=== PATIENT | female | born 1950 | race Two or more races ===

== ENCOUNTER → 2019-12-02 | Outpatient (CLI) | payer OTHER ==
[2019-12-02 12:35] LABS: Basophils # (auto) 0.1 uL; Eosinophils # (auto) 0.2 uL; Hematocrit 34.5 % (36.0-46.0); Mean Corpuscular Hemoglobin 22.9 pg (28.0-32.0); Neutrophils # (auto) 2.3 uL; Nucleated Red Blood Cells % 0.1 %; White Blood Cell 5.3 10^3/uL (4.4-10.8)
[2019-12-02 12:37] LABS: Basophils % (auto) 1.3 % (0.0-2.0); Eosinophils % (auto) 3.6 % (0.0-7.0); Hemoglobin 11.1 g/dL (12.2-16.2); Lymphocytes # (auto) 2.2 uL; Lymphocytes % (auto) 41.9 % (10.0-50.0); Mean Corpuscular Hgb Conc. 32.3 g/dL (32.0-36.0); Mean Corpuscular Volume 70.9 fL (80.0-100.0); Monocytes # (auto) 0.5 uL; Monocytes % (auto) 9.9 % (0.0-12.0); Neutrophils % (auto) 43.3 % (37.0-80.0); Platelet Count (auto) 208 10^3/uL (140-450); Red Blood Cells 4.87 10^6/uL (4.0-5.20); Red Cell Distribution Width 17.4 % (11.8-14.3)
[2019-12-02 12:59] LABS: Urine Bacteria NONE SEEN /hpf (None Seen); Urine Blood Negative /uL (Negative); Urine Mucus FEW (None Seen); Urine Specific Gravity 1.022 (1.001-1.035); Urine WBC 1 /hpf (0 - 5)
[2019-12-02 13:08] LABS: Potassium 3.8 mmol/L (3.5-5.1)
[2019-12-02 13:26] LABS: Albumin 3.7 g/dL (3.4-5.0); BUN/Creatinine Ratio 17.6; Bilirubin, Total 0.4 mg/dL (0.2-1.0); Calcium 8.9 mg/dL (8.5-10.1); Total Protein 8.3 g/dL (6.4-8.2)
== END | disposition home or self-care (01) ==
LOC: LAB 12:18
PROVIDERS: ATTEND Nurse Practitioner
DX: Z00.00 Encounter for general adult medical examination without abnormal findings (principal); E78.5 Hyperlipidemia, unspecified
CPT/HCPCS: 36415; 80053; 80061; 81001; 84443; 85025

== ENCOUNTER → 2020-08-02 | Outpatient (CLI) | payer OTHER ==
[2020-08-02 12:42] LABS: Albumin 3.4 g/dL (3.4-5.0); Calcium 9.2 mg/dL (8.5-10.1); Potassium 3.8 mmol/L (3.5-5.1)
[2020-08-02 12:47] LABS: BUN/Creatinine Ratio 15.9; Bilirubin, Total 0.4 mg/dL (0.2-1.0); Total Protein 7.3 g/dL (6.4-8.2)
== END | disposition home or self-care (01) ==
LOC: LAB 11:51
PROVIDERS: ATTEND Nurse Practitioner
DX: E78.5 Hyperlipidemia, unspecified (principal)
CPT/HCPCS: 36415; 80053; 80061

== ENCOUNTER → 2022-03-02 | Outpatient (CLI) | payer OTHER ==
[2022-03-02 13:52] LABS: Basophils # (auto) 0.1 10 ^3/uL (0-0.2); Basophils % (auto) 1.6 % (0.0-2.0); Eosinophils # (auto) 0.3 10 ^3/uL (0-0.8); Eosinophils % (auto) 5.4 % (0.0-7.0); Hematocrit 34.5 % (36.0-46.0); Lymphocytes # (auto) 2.6 10 ^3/uL (0.4-5.4); Lymphocytes % (auto) 45.4 % (10.0-50.0); Mean Corpuscular Hemoglobin 22.3 pg (28.0-32.0); Mean Corpuscular Volume 69.5 fL (80.0-100.0); Monocytes # (auto) 0.6 10 ^3/uL (0-1.3); Monocytes % (auto) 10.6 % (0.0-12.0); Neutrophils # (auto) 2.2 10 ^3/uL (1.6-8.6); Nucleated Red Blood Cells % 0.1 %; Red Blood Cells 4.96 10^6/uL (4.0-5.20); Red Cell Distribution Width 16.7 % (11.8-14.3); White Blood Cell 5.8 10^3/uL (4.4-10.8)
[2022-03-02 14:08] LABS: Urine Bacteria NONE SEEN /hpf (None Seen); Urine Blood Negative /uL (Negative); Urine Mucus FEW (None Seen); Urine Specific Gravity 1.028 (1.001-1.035); Urine WBC 1 /hpf (0 - 5)
[2022-03-02 14:21] LABS: Albumin 3.5 g/dL (3.4-5.0); Calcium 9.4 mg/dL (8.5-10.1); Potassium 4.8 mmol/L (3.5-5.1)
[2022-03-02 14:26] LABS: BUN/Creatinine Ratio 15.2
[2022-03-02 14:27] LABS: Bilirubin, Total 0.4 mg/dL (0.2-1.0); Total Protein 7.7 g/dL (6.4-8.2)
== END | disposition home or self-care (01) ==
LOC: LAB 13:31
PROVIDERS: ATTEND Nurse Practitioner
DX: E78.5 Hyperlipidemia, unspecified (principal); I10 Essential (primary) hypertension
CPT/HCPCS: 36415; 80053; 80061; 81001; 85025

== ENCOUNTER → 2022-07-20 | Outpatient (CLI) | payer OTHER ==
[2022-07-20 11:29] LABS: Mean Corpuscular Hemoglobin 21.7 pg (28.0-32.0); Mean Corpuscular Hgb Conc. 31.5 g/dL (32.0-36.0); Monocytes # (auto) 0.8 10 ^3/uL (0-1.3); Neutrophils # (auto) 2.8 10 ^3/uL (1.6-8.6); Neutrophils % (auto) 40.2 % (37.0-80.0)
[2022-07-20 11:34] LABS: Basophils # (auto) 0.1 10 ^3/uL (0-0.2); Basophils % (auto) 1.3 % (0.0-2.0); Eosinophils # (auto) 0.2 10 ^3/uL (0-0.8); Eosinophils % (auto) 3.4 % (0.0-7.0); Hematocrit 33.7 % (36.0-46.0); Hemoglobin 10.6 g/dL (12.2-16.2); Lymphocytes % (auto) 43.9 % (10.0-50.0); Mean Corpuscular Volume 69.1 fL (80.0-100.0); Monocytes % (auto) 11.2 % (0.0-12.0); Red Blood Cells 4.88 10^6/uL (4.0-5.20); Red Cell Distribution Width 17.6 % (11.8-14.3); White Blood Cell 6.9 10^3/uL (4.4-10.8)
[2022-07-20 12:01] LABS: Urine Bacteria NONE SEEN /hpf (None Seen); Urine Blood Negative /uL (Negative); Urine Specific Gravity 1.025 (1.001-1.035); Urine WBC 2 /hpf (0 - 5)
[2022-07-20 12:37] LABS: Potassium 4.4 mmol/L (3.5-5.1)
[2022-07-20 12:45] LABS: Albumin 3.5 g/dL (3.4-5.0); BUN/Creatinine Ratio 21.6; Bilirubin, Total 0.4 mg/dL (0.2-1.0); Calcium 8.7 mg/dL (8.5-10.1); Total Protein 7.1 g/dL (6.4-8.2)
== END | disposition home or self-care (01) ==
LOC: LAB 11:10
PROVIDERS: ATTEND Nurse Practitioner
DX: E78.5 Hyperlipidemia, unspecified (principal); R73.9 Hyperglycemia, unspecified
CPT/HCPCS: 36415; 80053; 80061; 81001; 83036; 85025

== ENCOUNTER → 2024-01-15 | Outpatient (CLI) | payer OTHER ==
[2024-01-15 10:01] LABS: Basophils # (auto) 0.1 10 ^3/uL (0-0.2); Basophils % (auto) 1.1 % (0.0-2.0); Hematocrit 35.5 % (36.0-46.0); Hemoglobin 11.2 g/dL (12.2-16.2); Lymphocytes # (auto) 2.7 10 ^3/uL (0.4-5.4); Neutrophils # (auto) 2.9 10 ^3/uL (1.6-8.6); Nucleated Red Blood Cells % 0.1 %; Red Blood Cells 4.99 10^6/uL (4.0-5.20)
[2024-01-15 10:03] LABS: Eosinophils # (auto) 0.3 10 ^3/uL (0-0.8); Eosinophils % (auto) 4.4 % (0.0-7.0); Lymphocytes % (auto) 42.2 % (10.0-50.0); Mean Corpuscular Hemoglobin 22.5 pg (28.0-32.0); Mean Corpuscular Hgb Conc. 31.7 g/dL (32.0-36.0); Mean Corpuscular Volume 71.2 fL (80.0-100.0); Monocytes # (auto) 0.5 10 ^3/uL (0-1.3); Monocytes % (auto) 7.6 % (0.0-12.0); Neutrophils % (auto) 44.7 % (37.0-80.0); Red Cell Distribution Width 16.4 % (11.8-14.3); White Blood Cell 6.4 10^3/uL (4.4-10.8)
[2024-01-15 10:36] LABS: Alanine Aminotransferase 18 U/L (7-40); Albumin 4.2 g/dL (3.2-4.8); Alkaline Phosphatase 54 U/L (46-116); Anion Gap 6 (5-15); Aspartate Aminotransferase 13 U/L (13-40); BUN/Creatinine Ratio 18.9 (10.0-20.0); Blood Urea Nitrogen 17 mg/dL (9-23); Calcium 9.3 mg/dL (8.5-10.1); Carbon Dioxide 29 mmol/L (20-30); Chloride 107 mmol/L (98-107); Cholesterol 226 mg/dL (< 200); Glucose 100 mg/dL (74-106); HDL Cholesterol 50 mg/dL (40-59); LDL Cholesterol 156 mg/dL (< 100); Potassium 3.9 mmol/L (3.5-5.1); Sodium 142 mmol/L (136-145); Triglycerides 80 mg/dL (< 150)
[2024-01-15 10:37] LABS: Bilirubin, Total 0.5 mg/dL (0.2-1.0); Total Protein 7.6 g/dL (5.7-8.2)
[2024-01-15 10:56] LABS: Urine Bacteria NONE SEEN /hpf (None Seen); Urine Blood Negative /uL (Negative); Urine Clarity Clear (Clear); Urine Color Colorless (Yellow); Urine Protein, UAD Negative (Negative); Urine Specific Gravity 1.021 (1.001-1.035); Urine Urobilinogen Normal (Negative); Urine WBC 6 /hpf (0 - 5)
== END | disposition home or self-care (01) ==
LOC: LAB 09:45
PROVIDERS: ATTEND Nurse Practitioner
DX: E11.9 Type 2 diabetes mellitus without complications (principal); I10 Essential (primary) hypertension; E78.5 Hyperlipidemia, unspecified
CPT/HCPCS: 36415; 80053; 80061; 81001; 83036; 84443; 85025

== ENCOUNTER 2024-11-13 19:31 | Inpatient (IN) | payer BC, OTHER ==
[~2024-11-13] VITALS: Ht 162.6 cm; Wt 73.2 kg
[~2024-11-13 19:31] MED LIST: ASPI-628 PO; ATOR10TA PO; BACL10TA PO; LOSA-533 PO
[2024-11-13 20:16] LABS: Monocytes # (auto) 0.7 10 ^3/uL (0-1.3); Platelet Count (auto) 244 10^3/uL (140-450); Red Cell Distribution Width 16.6 % (11.8-14.3)
[2024-11-13 20:18] LABS: Basophils # (auto) 0.1 10 ^3/uL (0-0.2); Basophils % (auto) 1.7 % (0.0-2.0); Eosinophils # (auto) 0.1 10 ^3/uL (0-0.8); Eosinophils % (auto) 1.8 % (0.0-7.0); Hematocrit 34.5 % (36.0-46.0); Lymphocytes # (auto) 3.2 10 ^3/uL (0.4-5.4); Lymphocytes % (auto) 41.9 % (10.0-50.0); Mean Corpuscular Hemoglobin 22.6 pg (28.0-32.0); Mean Corpuscular Volume 70.6 fL (80.0-100.0); Monocytes % (auto) 9.2 % (0.0-12.0); Neutrophils # (auto) 3.4 10 ^3/uL (1.6-8.6); Neutrophils % (auto) 45.4 % (37.0-80.0); Nucleated Red Blood Cells % 0.1 %; Red Blood Cells 4.89 10^6/uL (4.0-5.20); White Blood Cell 7.6 10^3/uL (4.4-10.8)
[2024-11-13 20:30] LABS: Alanine Aminotransferase 19 U/L (7-40); Albumin 4.7 g/dL (3.2-4.8); Alkaline Phosphatase 69 U/L (46-116); Anion Gap 9 (5-15); Aspartate Aminotransferase 19 U/L (13-40); BUN/Creatinine Ratio 23.9 (10.0-20.0); Bilirubin, Total 0.3 mg/dL (0.2-1.0); Carbon Dioxide 24 mmol/L (20-31); Potassium 3.5 mmol/L (3.5-5.1); Sodium 141 mmol/L (136-145); Total Protein 8.1 g/dL (5.7-8.2)
[2024-11-13 20:31] LABS: Chloride 108 mmol/L (98-107); Glucose 194 mg/dL (74-106)
[2024-11-13 20:32] LABS: Blood Urea Nitrogen 27 mg/dL (9-23)
--- NOTE | 2024-11-13 20:53 | ED.PDOC ---
HPI (NEURO) HPI Comments 74 year old female came to Er for right sided weakness. Patient denies any medical problems. States 2 hours prior to arrival she developed sudden onset right sided weakness and numbness of her upper and lower extremities. She felt dizzy, noted slurring of speech and imbalance. Denies any headaches. Patient states she feels better upon arrival at the ER. Blood pressure upon arrival was 170/83 mmHg Chief Complaint: Right Sided Weakness Time Seen by MD: 20:51 Reviewed Notes: Nurses Notes Information Source: Patient Mode of Arrival: Ambulatory Severity: Moderate Dizziness/Weakness Severity: Unable to do activities Headache Severity: Moderate Timing: Hours Duration: Intermittent Prehospital treatment: None Weakness Location: (R) Sided Numbness Location: (R) Sided Onset: At rest, With light exertion Circumstances: Spontaneous Symptoms: Imbalance, Weakness, Numbness, Difficult speech, Slurred speech Past Medical History PAST MEDICAL HISTORY: Denies Surgical History: Denies all surgeries FLAP CURER History: Denies all FLAP CURER Hx Family History Family History: Reviewed,noncontributory to illness Social History Smoker: Non-Smoker Alcohol: Denies ETOH Use Drugs: Denies Drug Use Lives In: Home Constitutional: denies: chills, diaphoresis, fatigue, fever, malaise, sweats, weakness, others EENTM: denies: blurred vision, double vision, ear bleeding, ear discharge, ear drainage, ear pain, ear ringing, eye pain, eye redness, hearing loss, mouth pain, mouth swelling, nasal discharge, nose bleeding, nose congestion, nose pain, photophobia, tearing, throat pain, throat swelling, voice changes, others Respiratory: denies: cough, hemoptysis, orthopnea, SOB at rest, shortness of breath, SOB with excertion, stridor, wheezing, others Cardiovascular: denies: chest pain, dizzy spells, diaphoresis, Dyspnea on exertion, edema, irregular heart beat, left arm pain, lightheadedness, palpitations, PND, syncope, others Gastrointestinal: denies: abdomen distended, abdominal pain, blood streaked bowels, constipated, diarrhea, dysphagia, difficulty swallowing, hematemesis, melena, nausea, poor appetite, poor fluid intake, rectal bleeding, rectal pain, vomiting, others Genitourinary: denies: abnormal vagina bleeding, burning, dyspareunia, dysuria, flank pain, frequency, hematuria, incontinence, pain, , vagina discharg e, urgency, others Neurological: reports: dizziness, right sided numbness, right sided weakness, speech problems; denies: fainting, headache, left sided numbness, left sided weakness, numbness, paresthesia, pre-existing deficit, seizure, tingling, tremors, weakness, others Musculoskeletal: denies: back pain, gout, joint pain, joint swelling, muscle pain, muscle stiffness, neck pain, others Integumetry: denies: bruises, change in color, change in hair/nails, dryness, laceration, lesions, lumps, rash, wounds, others Allergic/Immunocompromised: denies: Difficulty Healing, Frequent Infections, Hives, Itching, others Hematologic/Lymphatic: denies: anemia, blood clots, easy bleeding, easy bruising, swollen glands, others Endocrine: denies: excessive hunger, excessive sweating, excessive thirst, excessive urination, flushing, intolerance to cold, intolerance to heat, unexplained weight gain, unexplained weight loss, others Psychiatric: denies: anxiety, bipolar disorder, depression, hopeless, panic disorder, schizophrenia, sleepless, suicidal, others Physical Exam General Appearance: No Apparent Distress, Normal HEENT: Normal ENT Inspection, Pharynx Normal, TMs Normal Neck: Full Range of Motion, Non-Tender, Normal, Normal Inspection Respiratory: Chest Non-Tender, Lungs Clear, No Accessory Muscle Use, No Respiratory Distress, Normal Breath Sounds Cardiovascular: No Edema, No JVD, No Murmur, No Gallop, Normal Peripheral Pulses, Regular Rate/Rhythm Breast Exam: Deferred Gastrointestinal: No Organomegaly, Non Tender, No Pulsatile Mass, Normal Bowel Sounds, Soft Genitalia: Deferred Pelvic: Deferred Rectal: Deferred Extremities: No calf tenderness, Normal capillary refill, Normal inspection, Normal range of motion, Non-tender, No pedal edema Musculoskeletal : Apperance: Normal Neurologic: Alert, strand galvanizer II-XII nml as Tested, No Motor Deficits, Normal Affect, Normal Mood, No Sensory Deficits Cerebellar Function: Normal Reflexes: Normal Skin: Dry, Normal Color, Warm Lymphatic: No Adenopathy Was a procedure done? Was a procedure done?: No Differential Diagnosis (SZ) CVA: Ryan's Palsy, CVA, Electrolyte Imbalance, Encephalopathy, TIA X-Ray, Labs, Meds, VS Vital Signs Date Time Temp Pulse Resp B/P (MAP) Pulse Ox O2 Delivery O2 Flow Rate FiO2 11/13/24 22:29 73 16 100 Room Air* 0 21 11/13/24 22:29 73 16 192/90 (124) 100 11/13/24 19:35 97.7 78 18 170/83 (112) 98 Lab Test 11/13/24 21:44 11/13/24 21:30 11/13/24 19:51 11/13/24 19:48 Range/Units Urine Color Light-yellow Yellow Urine Clarity Clear Clear Urine pH 5.5 5.0-9.0 Urine Specific Luther 1.025 1.001-1.035 Urine Protein Negative Negative Urine Ketones Negative Negative Urine Blood Negative Negative /uL Urine Nitrite Negative Negative Urine Bilirubin Negative Negative Urine Urobilinogen Normal Negative mg/dL Urine Leukocyte Esterase 1+ Negative /uL Urine RBC <1 0 - 4 /hpf Urine WBC 1 0 - 5 /hpf Urine Squamous Epithelial Cells Few <5 /hpf Urine Bacteria None seen None Seen /hpf Urine Glucose Normal Normal mg/dL Troponin I High Sensitivity 18 19 </=34 ng/L White Blood Count 7.6 4.4-10.8 10^3/uL Red Blood Count 4.89 4.0-5.20 10^6/uL Hemoglobin 11.0 L 12.2-16.2 g/dL Hematocrit 34.5 L 36.0-46.0 % Mean Corpuscular Volume 70.6 L 80.0-100.0 fL Mean Corpuscular Hemoglobin 22.6 L 28.0-32.0 pg Mean Corpuscular Hemoglobin Concent 32.0 32.0-36.0 g/dL Red Cell Distribution Width 16.6 H 11.8-14.3 % Platelet Count 244 140-450 10^3/uL Mean Platelet Volume 8.0 6.9-10.8 fL Neutrophils (%) (Auto) 45.4 37.0-80.0 % Lymphocytes (%) (Auto) 41.9 10.0-50.0 % Monocytes (%) (Auto) 9.2 0.0-12.0 % Eosinophils (%) (Auto) 1.8 0.0-7.0 % Basophils (%) (Auto) 1.7 0.0-2.0 % Neutrophils # (Auto) 3.4 1.6-8.6 10 ^3/uL Lymphocytes # (Auto) 3.2 0.4-5.4 10 ^3/uL Monocytes # (Auto) 0.7 0-1.3 10 ^3/uL Eosinophils # (Auto) 0.1 0-0.8 10 ^3/uL Basophils # (Auto) 0.1 0-0.2 10 ^3/uL Nucleated Red Blood Cells 0.1 % Sodium Level 141 136-145 mmol/L Potassium Level 3.5 3.5-5.1 mmol/L Chloride Level 108 H 98-107 mmol/L Carbon Dioxide Level 24 20-31 mmol/L Anion Gap 9 5-15 Blood Urea Nitrogen 27 H 9-23 mg/dL Creatinine 1.13 H 0.550-1.02 mg/dL Glomerular Filtration Rate Calc 52 >90 mL/min BUN/Creatinine Ratio 23.9 H 10.0-20.0 Serum Glucose 194 H 74-106 mg/dL Calcium Level 10.0 8.7-10.4 mg/dL Total Bilirubin 0.3 0.2-1.0 mg/dL Aspartate Amino Transferase (AST) 19 13-40 U/L Alanine Aminotransferase (ALT) 19 7-40 U/L Alkaline Phosphatase 69 46-116 U/L B-Type Natriuretic Peptide 73.60 0-100 pg/mL Total Protein 8.1 5.7-8.2 g/dL Albumin 4.7 3.2-4.8 g/dL POC Glucose 168 H 70-106 mg/dl EXAM: CT ANGIO HEAD/NECK CLINICAL HISTORY: right arm and leg weakness TECHNIQUE: CT angiogram of the head and neck was performed without and with intravenous contrast. 3D MIP reconstructed images were created and archived on the PACS system. This exam was performed according to our departmental dose optimization program. Up-to-date CT equipment and radiation dose reduction paola hniques are utilized as appropriate. [Radimetrics Exposure Report] COMPARISON: None FINDINGS: CTA head: Mild cerebral volume loss with concordant prominence of the subarachnoid spaces and ventricles. The toro white matter interfaces are maintained There is no midline shift or mass effect. There is no evidence of acute intracranial hemorrhage. The basal cisterns are patent. The calvarium is intact. There is mild calcified plaque within the bilateral cavernous and supraclinoid ICAs. The distal internal carotid, vertebral, and basilar arteries are patent without focal narrowing or occlusion. The anterior, middle, and posterior cerebral arteries are patent without focal narrowing. No aneurysm or arteriovenous malformation is identified. CTA neck: The aortic arch vessel origins are widely patent. The common carotid and cervical portions of the internal carotid and vertebral arteries are patent without focal narrowing according to NASCET criteria. No aneurysm, AVM, or dissection is identified. The cervical soft tissues are unremarkable. The paranasal sinus and mastoid air cells are clear. Mild biapical pleural-parenchymal scarring. IMPRESSION: Widely patent arteries in the head and neck without large vessel occlusion, significant stenosis, aneurysm, dissection, or AVM. Time of 1ST Reevaluation: 20:48 Reevaluation 1ST: Unchanged Patient Education/Counseling: Diagnosis, Treatment Family Education/Counseling: No Family Present Departure 1 Departure Time of Disposition: 23:51 (Patient with concern for TIA. Patient's symptoms have since resolved .we will admit patient for further workup and expert consultation) Impression: Primary Impression: TIA (transient ischemic attack) Additional Impressions: Right sided weakness Slurred speech Disposition: ADMITTED INPATIENT Admit to: Med Surg Condition: Serious Critical Care Note Critical Care Time?: Yes (35 min-critical care time only) Critical care comment: Concern for CVA Authorized and Performed by: Vinicio Garcia MD Total critical care time: Approximately 37 minutes Due to a high probability of clinically significant, life threatening deterioration, the patient required my highest level of preparedness to intervene emergently and I personally spent this critical care time directly and personally managing the patient. This critical care time included obtaining a history; examining the patient; pulse oximetry; ordering and review of studies; arranging urgent treatment with development of a management plan; evaluation of patient's response to treatment; frequent reassessment; and, discussions with other providers. This critical care time was performed to assess and manage the high probability of imminent, life-threatening deterioration that could result in multi-organ failure. It was exclusive of separately billable procedures and treating other patients and teaching time. Please see my other sections and the rest of the note for further information on patient assessment and treatment. Stability Stability form required: No Heart Score Heart Score: Heart Score Response (Comments) Value History N/A 0 EKG N/A 0 Age N/A 0 Risk Factors N/A 0 Troponin N/A 0 Total 0 I personally scribed for VINICIO GARCIA MD ([facility]) on 11/13/24 at 20:53. Electronically submitted by Phil Heck ([facility]). I personally scribed for VINICIO GARCIA MD ([facility]) on 11/13/24 at 23:14. Electronically submitted by Phil Heck ([facility] VINICIO GARCIA MD Nov 13, 2024 20:53
[2024-11-13 21:44] LABS: Urine Bacteria None Seen /hpf (None Seen)
[2024-11-13 21:47] LABS: Urine Blood Negative /uL (Negative); Urine Clarity Clear (Clear); Urine Color Light-Yellow (Yellow); Urine Protein, UAD Negative (Negative); Urine Specific Gravity 1.025 (1.001-1.035); Urine Squamous Epithelial Cell FEW /hpf (<5); Urine Urobilinogen Normal (Negative); Urine WBC 1 /hpf (0 - 5); Urine pH 5.5 (5.0-9.0)
[2024-11-13] MEDS: IOHEXOL 350 MG/ML 100ML IJ ONE (22:19)
--- NOTE | 2024-11-13 22:22 | DVH ---
CHEST RADIOGRAPH Indication: right arm and leg weakness Technique: Frontal and lateral view of the chest was obtained Comparison: None FINDINGS: Lines and Tubes: None Lungs: Clear Pleura: No effusion. No pneumothorax. Cardiomediastinal contours: Unremarkable Bones: Unremarkable IMPRESSION: 1. No evidence of acute disease.
[2024-11-13 22:29] VITALS: PULSE 73; RESP 16; O2SAT 100
--- NOTE | 2024-11-13 22:45 | DVH ---
EXAM: CT ANGIO HEAD/NECK CLINICAL HISTORY: right arm and leg weakness TECHNIQUE: CT angiogram of the head and neck was performed without and with intravenous contrast. 3D MIP reconstructed images were created and archived on the PACS system. This exam was performed accor ding to our departmental dose optimization program. Up-to-date CT equipment and radiation dose reduct ion techniques are utilized as appropriate. [Radimetrics Exposure Report] COMPARISON: None FINDINGS: CTA head: Mild cerebral volume loss with concordant prominence of the subarachnoid spaces and ventricles. The g ray white matter interfaces are maintained There is no midline shift or mass effect. There is no evid ence of acute intracranial hemorrhage. The basal cisterns are patent. The calvarium is intact. There is mild calcified plaque within the bilateral cavernous and supraclinoid ICAs. The distal inter nal carotid, vertebral, and basilar arteries are patent without focal narrowing or occlusion. The ant erior, middle, and posterior cerebral arteries are patent without focal narrowing. No aneurysm or art eriovenous malformation is identified. CTA neck: The aortic arch vessel origins are widely patent. The common carotid and cervical portions of the int ernal carotid and vertebral arteries are patent without focal narrowing according to NASCET criteria. No aneurysm, AVM, or dissection is identified. The cervical soft tissues are unremarkable. The paranasal sinus and mastoid air cells are clear. Mild biapical pleural-parenchymal scarring. IMPRESSION: Widely patent arteries in the head and neck without large vessel occlusion, significant stenosis, ane urysm, dissection, or AVM.
[2024-11-14 00:12] VITALS: PULSE 58; RESP 19; O2SAT 100
[2024-11-14] MEDS ORDERED: DOCUSATE SOD 100 MG CAP PO PRN (00:15)
[2024-11-14] MEDS ORDERED: HYDROcodone-ACET 5/325MG TAB PO PRN (00:15)
[2024-11-14] MEDS ORDERED: ONDANSETRON HCL 4 MG/2 ML VIAL IV PRN (00:15)
[2024-11-14] MEDS: cefTRIAXone 1GM/50ML D5W 50 ML IV ONE (00:24)
--- NOTE | 2024-11-14 00:52 | DVHHP2 ---
History of Present Illness Reason for Visit: Right-sided weakness History of Present Illness Patient is a 74-year-old female with past medical history of hypertension, hyperlipidemia, and diabetes mellitus who presented to [facility] ED with complaint of right-sided weakness and left-sided facial droop. Patient repo rts she developed sudden onset of right-sided weakness, numbness of upper and lower extremities, dizziness slurred speech, unsteady gait that prompted this visit. Patient was seen and evaluated in the ED, laboratory data shows WBC 7.6, platelets 244, sodium 141, potassium 3.5, BUN 27, creatinine 1.13, GFR 52, glucose 194, troponin 18, BNP 73.60 blood pressure 192/90 trending down to 172/68, heart rate 74, temperature 97.7 F, O2 saturation 99% room air. Head CT revealing widely patent arteries in the head and neck without large vessel occlusion, significant stenosis, aneurysm, dissection, or AVM. Please see medication orders section in the computer. On my assessment, patient denied chest pain, no headache, no dizziness, no diaphoresis, no shortness of breath, no nausea, no vomiting, no fever, no chills. Patient was admitted for further evaluation medical management. Past Medical History Hypertension, HLD, DM Past Surgical History Denies all surgeries Family History Reviewed, noncontributory to the management of this case. Past Social History The patient lives at home, denies smoking, alcohol or illicit drugs abuse. Review of Systems Constitutional: No: Fever, Chills, Sweats, Weakness, Malaise, Other Eyes: No: Pain, Vision change, Conjunctivae inflammation, Eyelid inflammation, Other, Redness ENT: No: Ear pain, Ear discharge, Nose pain, Nose discharge, Nose congestion, Mouth pain, Mouth swelling, Throat pain, Throat swelling, Other Respiratory: No: Cough, Dry, Shortness of breath, SOB with excertion, Wheezing, Hemoptysis, Pleuritic Pain, Sputum, Wheezing, Other Cardiovascular: No: Chest Pain, Palpitations, Orthopnea, Paroxysmal Noc. Dyspnea, Edema, Lt Headedness, Other Gastrointestinal: No: Nausea, Vomiting, Abdominal Pain, Diarrhea, Constipation, Melena, Hematochezia, Other Genitourinary: No Dysuria, No Frequency, No Incontinence, No Hematuria, No Retention, No Other Musculoskeletal: No: other, neck pain, shoulder pain, arm pain, back pain, hand pain, leg pain, foot pain Skin: No: Rash, Lesions, Jaundice, Bruising, Other Neurological: Weakness (Right-sided), Other (dizziness, right sided numbness, speech problems.); No: Numbness, Incoordination, Change in speech, Confusion, Seizures Allergies: Coded Allergies: NO KNOWN ALLERGIES (Unverified , 11/13/24) Medications Current Medications Medications Dose Ordered Sig/Vida Route Start Time Stop Time Status Last Admin Dose Admin Hydralazine HCl 10 mg Q6HP PRN IV 11/14/24 00:15 Ceftriaxone Sodium 50 ml @ 100 mls/hr DAILY@2100 IV 11/14/24 21:00 Losartan Potassium 25 mg DAILY PO 11/14/24 10:00 Atorvastatin Calcium 10 mg HS PO 11/14/24 22:00 Sodium Chloride 10 ml Q8HR IV 11/14/24 06:00 Acetaminophen/ Hydrocodone Bitart 1 tab Q4HP PRN PO 11/14/24 00:15 Ondansetron HCl 4 mg Q4HP PRN IV 11/14/24 00:15 Docusate Sodium 100 mg BIDPRN PRN PO 11/14/24 00:15 Acetaminophen 650 mg Q6HP PRN PO 11/14/24 00:15 Aspirin 81 mg DAILY PO 11/14/24 10:00 Exam Vital Signs Vital Signs Date Time Temp Pulse Resp B/P (MAP) Pulse Ox O2 Delivery O2 Flow Rate FiO2 11/14/24 00:12 58 19 100 Room Air* 0 21 11/14/24 00:11 98.8 172/68 (102) 98.8 General Appearance: Alert, Oriented X3, Cooperative, No acute distress HEENT: Atraumatic, PERRLA, EOMI, Mucous membr. moist/pink Respiratory: Clear to auscultation, Normal air movement Cardiovascular: Regular rate, Normal S1, Normal S2, No murmurs Abdominal: Normal bowel sounds, Soft, No tenderness, No hepatospenomegaly, No masses Extremities: No clubbing, No cyanosis, No edema, Normal pulses, No tenderness/swelling Skin: No rashes, No breakdown, No significant lesion Neuro: Normal tone, Sensation intact, Cranial nerves 3-12 NL, Reflexes 2+, Other (Right-sided weakness) Psych/Mental Status: Mental status NL, Mood NL Labs/Xrays Labs Test 1/17/25 21:44 11/13/24 21:30 11/13/24 19:51 11/13/24 19:48 Range/Units Urine Color Light-yellow Yellow Urine Clarity Clear Clear Urine pH 5.5 5.0-9.0 Urine Specific Amery 1.025 1.001-1.035 Urine Protein Negative Negative Urine Ketones Negative Negative Urine Blood Negative Negative /uL Urine Nitrite Negative Negative Urine Bilirubin Negative Negative Urine Urobilinogen Normal Negative mg/dL Urine Leukocyte Esterase 1+ Negative /uL Urine RBC <1 0 - 4 /hpf Urine WBC 1 0 - 5 /hpf Urine Squamous Epithelial Cells Few <5 /hpf Urine Bacteria None seen None Seen /hpf Urine Glucose Normal Normal mg/dL Troponin I High Sensitivity 18 </=34 ng/L White Blood Count 7.6 4.4-10.8 10^3/uL Red Blood Count 4.89 4.0-5.20 10^6/uL Hemoglobin 11.0 L 12.2-16.2 g/dL Hematocrit 34.5 L 36.0-46.0 % Mean Corpuscular Volume 70.6 L 80.0-100.0 fL Mean Corpuscular Hemoglobin 22.6 L 28.0-32.0 pg Mean Corpuscular Hemoglobin Concent 32.0 32.0-36.0 g/dL Red Cell Distribution Width 16.6 H 11.8-14.3 % Platelet Count 244 140-450 10^3/uL Mean Platelet Volume 8.0 6.9-10.8 fL Neutrophils (%) (Auto) 45.4 37.0-80.0 % Lymphocytes (%) (Auto) 41.9 10.0-50.0 % Monocytes (%) (Auto) 9.2 0.0-12.0 % Eosinophils (%) (Auto) 1.8 0.0-7.0 % Basophils (%) (Auto) 1.7 0.0-2.0 % Neutrophils # (Auto) 3.4 1.6-8.6 10 ^3/uL Lymphocytes # (Auto) 3.2 0.4-5.4 10 ^3/uL Monocytes # (Auto) 0.7 0-1.3 10 ^3/uL Eosinophils # (Auto) 0.1 0-0.8 10 ^3/uL Basophils # (Auto) 0.1 0-0.2 10 ^3/uL Nucleated Red Blood Cells 0.1 % Sodium Level 141 136-145 mmol/L Potassium Level 3.5 3.5-5.1 mmol/L Chloride Level 108 H 98-107 mmol/L Carbon Dioxide Level 24 20-31 mmol/L Anion Gap 9 5-15 Blood Urea Nitrogen 27 H 9-23 mg/dL Creatinine 1.13 H 0.550-1.02 mg/dL Glomerular Filtration Rate Calc 52 >90 mL/min BUN/Creatinine Ratio 23.9 H 10.0-20.0 Serum Glucose 194 H 74-106 mg/dL Hemoglobin A1c 6.1 H <5.7 % A1C Calcium Level 10.0 8.7-10.4 mg/dL Total Bilirubin 0.3 0.2-1.0 mg/dL Aspartate Amino Transferase (AST) 19 13-40 U/L Alanine Aminotransferase (ALT) 19 7-40 U/L Alkaline Phosphatase 69 46-116 U/L B-Type Natriuretic Peptide 73.60 0-100 pg/mL Total Protein 8.1 5.7-8.2 g/dL Albumin 4.7 3.2-4.8 g/dL POC Glucose 168 H 70-106 mg/dl PATIENT: SHEYLA SWEENEY RACCT: [id number] UNIT: [id number] : 1950 LOC: ER ROOM / BED: / AGE / SEX: 74 / F ADM STATUS: REG ER SERVICE 50 ORDERING PHYSICIAN: VINICIO GARCIA MD PROCEDURE(s): [place]neck - ANGIO HEAD/Neck REASON: right arm and leg weakness ORDER NUMBER(s): [id number], ACCESSION NUMBER(s): [id number] EXAM: CT ANGIO HEAD/NECK CLINICAL HISTORY: right arm and leg weakness TECHNIQUE: CT angiogram of the head and neck was performed without and with intravenous contrast. 3D MIP reconstructed images were created and archived on the PACS system. This exam was performed according to our departmental dose optimization program. Up-to-date CT equipment and radiation dose reduction techniques are utilized as appropriate. Radimetrics Exposure Report] COMPARISON: None FINDINGS: CTA head: Mild cerebral volume loss with concordant prominence of the subarachnoid spaces and ventricles. The toro white matter interfaces are maintained There is no midline shift or mass effect. There is no evidence of acute intracranial hemorrhage. The basal cisterns are patent. The calvarium is intact. There is mild calcified plaque within the bilateral cavernous and supraclinoid ICAs. The distal internal carotid, vertebral, and basilar arteries are patent without focal narrowing or occlusion. The anterior, middle, and posterior cerebral arteries are patent without focal narrowing. No aneurysm or arteriovenous malformation is identified. CTA neck: The aortic arch vessel origins are widely patent. The common carotid and cervical portions of the internal carotid and vertebral arteries are patent without focal narrowing according to NASCET criteria. No aneurysm, AVM, or dissection is identified. The cervical soft tissues are unremarkable. The paranasal sinus and mastoid air cells are clear. Mild biapical pleural-parenchymal scarring. IMPRESSION: Widely patent arteries in the head and neck without large vessel occlusion, significant stenosis, aneurysm, dissection, or AVM. ORDERING PHYSICIAN: VINICIO GARCIA MD PROCEDURE(s): CXR2 - CHEST TWO VIEWS ROUTINE REASON: right arm and leg weakness ORDER NUMBER(s): [id number], ACCESSION NUMBER(s): [id number] CHEST RADIOGRAPH Indication: right arm and leg weakness Technique: Frontal and lateral view of the chest was obtained Comparison: None FINDINGS: Lines and Tubes: None Lungs: Clear Pleura: No effusion. No pneumothorax. Cardiomediastinal contours: Unremarkable Bones: Unremarkable IMPRESSION: 1. No evidence of acute disease. Assessment/Plan Assessment/Plan TIA (transient ischemic attack) Right sided weakness Slurred speech Urinary tract infection Hypertensive urgency Plan 1. Admit to telemetry unit 2. Breathing treatment 3. Pain control management 4. IV antibiotic management 5. Management of fluids and electrolytes 6. Consultation for Neurology 7. Diagnostic test head CT 8. DVT prophylaxis-on aspirin 9. Repeat labs CBC, CMP in a.m. 10. Home medication reviewed and reconciled 11. Continue with current medical management 12. Treatment plan discussed with patient and RN. Patient verbalized understandi ng. Plan discussed with: Patient, Other (RN) My Orders Orders - MIRLANDE NEW DNP Procedure Category Date Status Time Hydralazine Injection PHA 11/14/24 In Process (Apresoline Inject 00:15 Ceftriaxone 1gm/50ml PHA 11/14/24 In Process D5w (Rocephin) 21:00 Urine Bacterial CLEMENCIA 11/14/24 In Process Culture 00:03 Losartan Tablet PHA 11/14/24 In Process (Cozaar Tablet) 10:00 Atorvastatin (Lipitor) PHA 11/14/24 In Process 22:00 Allergies NANCY 11/14/24 In Process 00:03 Code Status CODE 11/14/24 Transmitted 00:03 Sodium Chloride Lock PHA 11/14/24 In Process (Saline Lock Ns) 06:00 Oxygen Per Hour RT 11/14/24 Transmitted 00:03 Hydrocodone-Acet PHA 11/14/24 In Process 5/325mg Tab (Noble 00:15 Ondansetron Hcl PHA 11/14/24 In Process (Zofran) 00:15 Docusate Sodium PHA 11/14/24 In Process Capsule (Colace 00:15 Fall Risk Precautions NANCY 11/14/[address] 00:03 Complete Blood Count LAB 11/15/24 Verified 04:00 Comprehensive LAB 11/15/24 Verified Metabolic Panel 04:00 Cardiac DIET 11/14/24 Transmitted Diet-2gna,Lofat,Lochol Breakfast Condition: Serious NANCY 11/14/24 In Process 00:03 Acetaminophen Tablet PHA 11/14/24 In Process (Tylenol Tablet) 00:15 Sequential NANCY 11/14/24 In Process Compression Device Aspirin Tablet PHA 11/14/24 In Process 10:00 Problem List: (1) TIA (transient ischemic attack) (2) Right sided weakness (3) Slurred speech (4) Urinary tract infection (5) Hypertensive urgency Date of Service: Nov 14, 2024 Billing Provider: MIRLANDE NEW DNP Common Visit Codes: [id number] INP/OBS CARE (HIGH) MIRLANDE NEW DNP Nov 14, 2024 00:52
[2024-11-14] MEDS ORDERED: NITROGLYCERIN 0.4 MG SL TAB SL PRN (01:00)
[2024-11-14] MEDS ORDERED: MORPHINE SULFATE INJ 2 MG/ml SYRG IV PRN (01:00)
[2024-11-14] MEDS ORDERED: DEXTROSE (50%) 50ML SYRG IV PRN (01:00)
[2024-11-14] MEDS: amLODIPine BESYLATE 5 MG TAB PO ONE (02:12)
[2024-11-14] MEDS: hydrALAZINE HCL 20 MG/ML VL IV PRN (03:04)
[2024-11-14] MEDS: SODIUM CHLOR 0.9% PF (SALINE LOCK) 10ML VIAL/SYR IV SCH (05:14)
[2024-11-14] MEDS: ACCU-CHEK COMFORT CURVE STRIP VI SCH (06:25)
[2024-11-14] MEDS: InsuLIN REG 1unit/0.01ml Soln (100units/ml) SC SCH (06:25)
[2024-11-14 08:00] VITALS: PULSE 70; RESP 15; O2SAT 100
[2024-11-14] MEDS: ASPirin 81 mg TAB PO SCH (10:17)
[2024-11-14] MEDS: LOSARTAN POTASSIUM 25 MG TAB PO SCH (10:17)
[2024-11-14] MEDS: amLODIPine BESYLATE 5 MG TAB PO SCH (10:18)
[2024-11-14 10:35] VITALS: BP 156/72; PULSE 70; RESP 16; TEMP 97.4; O2SAT 100
[2024-11-14 10:50] VITALS: PULSE 70; RESP 17; O2SAT 100
[2024-11-14 13:00] VITALS: BP 122/67; PULSE 79; RESP 16; TEMP 97.9; O2SAT 100
[2024-11-14] MEDS ORDERED: AMLO1TAB22 PO (13:41)
[2024-11-14] MEDS ORDERED: ASPI81CH74 PO (13:41)
[2024-11-14] MEDS: cefTRIAXone 1GM/50ML D5W 50 ML IV SCH (21:28)
[2024-11-14] MEDS: ATORVASTATIN 20 MG TAB PO SCH (21:40)
[2024-11-14 23:00] VITALS: BP 117/57; PULSE 76; RESP 19; TEMP 97.6; O2SAT 100
[2024-11-15] VITALS (8 sets, daily range): BP systolic 105–127; BP diastolic 54–68; PULSE 75–91; RESP 16–19; TEMP 97.5–99; O2SAT 95–100
[2024-11-15 07:13] LABS: Basophils # (auto) 0.1 10 ^3/uL (0-0.2); Eosinophils # (auto) 0.2 10 ^3/uL (0-0.8); Neutrophils # (auto) 4.6 10 ^3/uL (1.6-8.6)
[2024-11-15 07:16] LABS: Basophils % (auto) 1.1 % (0.0-2.0); Hematocrit 34.6 % (36.0-46.0); Hemoglobin 11.1 g/dL (12.2-16.2); Lymphocytes # (auto) 3.3 10 ^3/uL (0.4-5.4); Lymphocytes % (auto) 36.2 % (10.0-50.0); Mean Corpuscular Hemoglobin 22.5 pg (28.0-32.0); Mean Corpuscular Hgb Conc. 32.2 g/dL (32.0-36.0); Monocytes # (auto) 0.9 10 ^3/uL (0-1.3); Monocytes % (auto) 10.1 % (0.0-12.0); Neutrophils % (auto) 50.6 % (37.0-80.0); Nucleated Red Blood Cells % 0.2 %; Platelet Count (auto) 248 10^3/uL (140-450); Red Blood Cells 4.95 10^6/uL (4.0-5.20); Red Cell Distribution Width 16.5 % (11.8-14.3); White Blood Cell 9.1 10^3/uL (4.4-10.8)
[2024-11-15 07:28] LABS: Alanine Aminotransferase 18 U/L (7-40); Albumin 3.9 g/dL (3.2-4.8); Alkaline Phosphatase 56 U/L (46-116); Anion Gap 9 (5-15); Aspartate Aminotransferase 13 U/L (13-40); Bilirubin, Total 0.5 mg/dL (0.2-1.0); Calcium 9.7 mg/dL (8.7-10.4); Carbon Dioxide 24 mmol/L (20-31); Chloride 106 mmol/L (98-107); Potassium 4.2 mmol/L (3.5-5.1); Sodium 139 mmol/L (136-145); Total Protein 7.2 g/dL (5.7-8.2)
[2024-11-15 07:58] LABS: Blood Urea Nitrogen 26 mg/dL (9-23); Glucose 139 mg/dL (74-106)
[2024-11-15] MEDS ORDERED: PNEUMOCOCCAL VACC POLYS 25 MCG/0.5 ML VIAL IM ONE (08:00)
[2024-11-15] MEDS ORDERED: INFLUENZA TRIVALENT 2024-2025 0.5 ML INJ IM ONE (10:00)
[2024-11-15] MEDS: ACETAMINOPHEN 325 MG TAB PO PRN (11:51)
--- NOTE | 2024-11-15 13:09 | DVHPN2 ---
Reviewed: Care Plan Changes from previous H/P or p: No Changes General: Per HPI Eyes: No Pain, No Vision change, No Conjunctivae inflammation, No Eyelid inflammation, No Other, No Redness ENT: No Ear pain, No Ear discharge, No Nose pain, No Nose discharge, No Nose congestion, No Mouth pain, No Mouth swelling, No Throat pain, No Throat swelling, No Other Cardiovascular: No Chest Pain, No Palpitations, No Orthopnea, No Paroxysmal Noc. Dyspnea, No Edema, No Lt Headedness, No Other Respiratory: No Cough, No Dry, No Shortness of breath, No SOB with excertion, No Wheezing, No Hemoptysis, No Pleuritic Pain, No Sputum, No Other Gastrointestinal: No Nausea, No Vomiting, No Abdominal Pain, No Diarrhea, No Constipation, No Melena, No Hematochezia, No Other Genitourinary: No Dysuria, No Frequency, No Incontinence, No Hematuria, No Retention, No Other Musculoskeletal: No other, No neck pain, No shoulder pain, No arm pain, No back pain, No hand pain, No leg pain, No foot pain Skin: No Rash, No Lesions, No Jaundice, No Bruising, No Other Objective Vitals Vital Signs Date Time Temp Pulse Resp B/P (MAP) Pulse Ox O2 Delivery O2 Flow Rate FiO2 11/15/24 10:08 115/62 11/15/24 09:00 99.0 86 16 100 99.0 11/14/24 10:50 Room Air* 0 21 Intake/Output Intake and Output 11/15/24 07:00 # Voids 1 # Bowel Movements 1 General Appearance: Alert, Oriented X3, Cooperative, No acute distress HEENT: Atraumatic Cardiovascular: Regular rate, Normal S1, Normal S2 Abdomen: Normal bowel sounds, Soft Medications Current Medications Medications Dose Ordered Sig/Vida Route Start Time Stop Time Status Last Admin Dose Admin Hydralazine HCl 10 mg Q6HP PRN IV 11/14/24 00:15 11/14/24 03:04 10 MG Ceftriaxone Sodium 50 ml @ 100 mls/hr DAILY@2100 IV 11/14/24 21:00 11/14/24 21:28 100 MLS/HR Losartan Potassium 25 mg DAILY PO 11/14/24 10:00 11/15/24 10:07 25 MG Atorvastatin Calcium 10 mg HS PO 11/14/24 22:00 11/14/24 21:40 10 MG Sodium Chloride 10 ml Q8HR IV 11/14/24 06:00 11/15/24 05:46 10 ML Acetaminophen/ Hydrocodone Bitart 1 tab Q4HP PRN PO 11/14/24 00:15 Ondansetron HCl 4 mg Q4HP PRN IV 11/14/24 00:15 Docusate Sodium 100 mg BIDPRN PRN PO 11/14/24 00:15 Acetaminophen 650 mg Q6HP PRN PO 11/14/24 00:15 11/15/24 11:51 650 MG Aspirin 81 mg DAILY PO 11/14/24 10:00 11/15/24 10:07 81 MG Diagnostic Test (Pha) 1 strip ACHS 11/14/24 07:00 11/15/24 11:20 1 STRIP Insulin Human Regular ACHS SC 11/14/24 07:00 11/15/24 11:51 2 UNITS Dextrose 50 ml UD PRN IV 11/14/24 01:00 Nitroglycerin 0.4 mg Q5MINP PRN SL 11/14/24 01:00 Morphine Sulfate 2 mg Q30M PRN IV 11/14/24 01:00 Amlodipine Besylate 5 mg DAILY PO 11/14/24 10:00 11/15/24 10:08 5 MG Laboratory Results Laboratory Tests 11/15/24 06:51 Chemistry Test 11/15/24 06:51 Albumin 3.9 g/dL (3.2-4.8) Calcium Level 9.7 mg/dL (8.7-10.4) Total Protein 7.2 g/dL (5.7-8.2) LFT Test 11/15/24 06:51 Alanine Aminotransferase (ALT) 18 U/L (7-40) Alkaline Phosphatase 56 U/L (46-116) Aspartate Amino Transferase (AST) 13 U/L (13-40) Total Bilirubin 0.5 mg/dL (0.2-1.0) Urinalysis Test 11/13/24 21:44 Urine Color Light-yellow (Yellow) Urine Clarity Clear (Clear) Urine pH 5.5 (5.0-9.0) Urine Specific [place] 1.025 (1.001-1.035) Urine Protein Negative (Negative) Urine Ketones Negative (Negative) Urine Blood Negative /uL (Negative) Urine Nitrite Negative (Negative) Urine Bilirubin Negative (Negative) Urine Urobilinogen Normal mg/dL (Negative) Urine Leukocyte Esterase 1+ /uL (Negative) Urine RBC <1 /hpf (0 - 4) Urine WBC 1 /hpf (0 - 5) Urine Squamous Epithelial Cells Few /hpf (<5) Urine Bacteria None seen /hpf (None Seen) Urine Glucose Normal mg/dL (Normal) Microbiology Microbiology Date/Time Source Procedure Growth Status 11/13/24 21:44 Voided Urine Urine Culture - Preliminary Resulted Labs and/or images reviewed: Labs reviewed by me, Image(s) reviewed by me Assessment/Plan Assessment/Plan Patient is a 74-year-old female with past medical history of hypertension, hyperlipidemia, and diabetes mellitus who presented to [facility] ED with complaint of right-sided weakness and left-sided facial droop. Patient reports she developed sudden onset of right-sided weakness, numbness of upper and lower extremities, dizziness slurred speech, unsteady gait that prompted this visit. Patient was seen and evaluated in the ED, laboratory data shows WBC 7.6, platelets 244, sodium 141, potassium 3.5, BUN 27, creatinine 1.13, GFR 52, glucose 194, troponin 18, BNP 73.60 blood pressure 192/90 trending down to 172/68, heart rate 74, temperature 97.7 F, O2 saturation 99% room air. Head CT revealing widely patent arteries in the head and neck without large vessel occlusion, significant stenosis, aneurysm, dissection, or AVM. Please see medication orders section in the computer. On my assessment, patient denied chest pain, no headache, no dizziness, no diaphoresis, no shortness of breath, no nausea, no vomiting, no fever, no chills. Patient was admitted for further evaluation medical management. TIA (transient ischemic attack) Right sided weakness Slurred speech Urinary tract infection Hypertensive urgency 11/15/2024: awaiting evaluation by neurology. pending MRI Plan discussed with: Patient Date of Service: Nov 15, 2024 Billing Provider: BETH RENEE DO Common Visit Codes: [id number] INP/OBS CARE(HIGH) BETH RENEE DO Nov 15, 2024 13:09
--- NOTE | 2024-11-15 14:44 | DVHSR ---
APPROVED REPORT EXAM: Two-dimensional and M-mode echocardiogram with Doppler and color Doppler. Blood Pressure: 116/57 mmHg INDICATION TIA RISK FACTORS Height: 64, Weight: 163 DIMENSIONS LVDd4.1 (3.8-5.7cm)LA (2D)3.9 (1.9-4.0cm)Aortic Root3.5 (2.0-3.7cm) LVDs2.7 (2.5-4.0cm)LA (MM) (1.9-4.0cm)Aortic Cusp Exc1.7 (1.5-2.0cm) EF (%) 65.0 (55-70%)Rt. Atrium4.0 (1.9-4.0cm)Asc. Aorta cm IVSd1.0 (0.7-1.1cm)RV (D) (1.8-2.4cm) PWd1.4 (0.7-1.1cm) Mitral Valve MitralMitral Stenosis E wave0.53m/sMV Mean GR.mmHg A wave0.79m/sMV Peak GR.mmHg E/A ratio0.72D MVAcm2 DECEL [id number] 1/2 [id number] IVRTmsDop MVA2.50cm2 Aortic Valve Aortic ValveAortic Stenosis V11.13m/Adebayo Mean GR.4mmHg V21.27m/Adebayo Peak GR.6mmHg LVOT Diameter1.8 (1.8-2.4cm)Doppler AVA2.26cm2 Pulmonic Valve V21.02m/s Tricuspid Valve TR Velocity2.54m/s [id number] Conclusion lvef 55-60% by visual estimate normal rv function mild biatrial enlargement no severe valve abnormalities noted
[2024-11-16] VITALS (8 sets, daily range): BP systolic 122–132; BP diastolic 62–71; PULSE 70–88; RESP 17–18; TEMP 97.5–98.7; O2SAT 97–100
--- NOTE | 2024-11-16 21:02 | DVHINCON2 ---
Date of service: Nov 16, [address] Kaye Reason for Consultation TIA History of Present Illness Ms. Nolan is a 74 years old right-handed female with a history of diabetes, the patient was came to the [facility] on 11/13/2024 with a chief company of right-sided weakness, at that time, he is alert and fully oriented, he provided the following history On 11/13/2024, he developed slurred speech, weakness numbness in the right arm than leg, meanwhile he was had mild lightheadedness, but there was no confusion or mental status changes. The patient has no history of stroke or similar problems previously Urinalysis, 11/13/2024: Unremarkable WBC/HB/PLT/MCV, 11/15/2024: 9 0.1/1/248/70 CMP, 11/15/2024: Unremarkable HGB A1c, 11/13/2024: 6.1 CT head, neck, 11/13/2024: Widely patent arteries in the head and neck without large vessel occlusion, significant stenosis, aneurysm, dissection, or AVM Past Medical History Diabetes, photophobia Past Surgical History Right knee surgery, lumbar spine surgeries Family History Diabetes, hypertension, Parkinson's disease Social History He was the tobacco smoke, but no history of alcohol or recreational substance abuse Allergies: Coded Allergies: NO KNOWN ALLERGIES (Unverified , 11/13/24) Home Meds Reported Medications Aspirin (Aspirin 81 Low Dose) 81 Mg Chw, 81 MG PO, TAB.CHEW 11/14/24 Amlodipine Besylate (Amlodipine Besylate) 5 Mg Tab, 5 MG PO DAILY for 30 Days, MG 11/14/24 Review of Systems As above, the other systems are negative Vital Signs Vital Signs Date Time Temp Pulse Resp B/P (MAP) Pulse Ox O2 Delivery O2 Flow Rate FiO2 11/16/24 17:00 98.0 78 18 126/65 (85) 99 98.0 11/16/24 08:15 Room Air* 0 21 Physical Exam GENERAL EXAM: General: the patient is well developed and nourished. No acute distress. HEENT: Normocephalic, neck is supple, no carotid bruits. No mass RESPIRATORY: Normal respiratory effort with symmetrical lung expansion. Lungs clear to auscultation. CARDIOVASCULAR: Regular rate and rhythm with no murmurs. S1, S2. ABDOMEN: Soft, nontender, normal bowel sound NEUROLOGICAL: MENTAL STATUS: Awake and alert. Oriented to person, place, time and general circumstances. Able to give personal history SPEECH, LANGUAGE, HIGHER CORTICAL FUNCTION: no aphasia or dysathria. CRANIAL NERVES: #2: Intact visual avendaño to confrontation. The optic discs were sharp #3,4,6: Pupils are equal, round and reactive. EOMs full and conjugate #5: Facial sensation intact in all three divisions bilaterally. Mandibular strength intact. #7: The left nasal labial fold looks shallow, but she does not have a old picture for me to compare #8: Hearing grossly normal to voice. #9,10: Uvula and soft palate rise in the midline. Swallow and voice are normal. #11: Trapezius and sternomastoid strength intact bilaterally. #12: Time slight deviated to the right side. No fasciculations or atrophy. SENSATION: Sensation to touch and pinprick is normal. MOTOR: Normal tone in the upper and lower extremity. Normal muscle bulk. No fasciculations. No abnormal movements or posturing. Muscle strength of the major groups in the upper extremities is 5/5. Muscle strength of the major groups in the lower extremities is 5/5. REFLEXES: Deep tendon reflexes normal and symmetrical. No pathological reflexes. CEREBELLAR/COORDINATION: Finger to nose is normal bilaterally. GAIT/STATION: deferred. Labs/Diagnostic Data Labs Test 11/16/24 16:52 11/15/24 06:51 11/13/24 21:44 11/13/24 21:30 Range/Units POC Glucose 88 70-106 mg/dl White Blood Count 9.1 4.4-10.8 10^3/uL Red Blood Count 4.95 4.0-5.20 10^6/uL Hemoglobin 11.1 L 12.2-16.2 g/dL Hematocrit 34.6 L 36.0-46.0 % Mean Corpuscular Volume 70.0 L 80.0-100.0 fL Mean Corpuscular Hemoglobin 22.5 L 28.0-32.0 pg Mean Corpuscular Hemoglobin Concent 32.2 32.0-36.0 g/dL Red Cell Distribution Width 16.5 H 11.8-14.3 % Platelet Count 248 140-450 10^3/uL Mean Platelet Volume 7.6 6.9-10.8 fL Neutrophils (%) (Auto) 50.6 37.0-80.0 % Lymphocytes (%) (Auto) 36.2 10.0-50.0 % Monocytes (%) (Auto) 10.1 0.0-12.0 % Eosinophils (%) (Auto) 2.0 0.0-7.0 % Basophils (%) (Auto) 1.1 0.0-2.0 % Neutrophils # (Auto) 4.6 1.6-8.6 10 ^3/uL Lymphocytes # (Auto) 3.3 0.4-5.4 10 ^3/uL Monocytes # (Auto) 0.9 0-1.3 10 ^3/uL Eosinophils # (Auto) 0.2 0-0.8 10 ^3/uL Basophils # (Auto) 0.1 0-0.2 10 ^3/uL Nucleated Red Blood Cells 0.2 % Sodium Level 139 136-145 mmol/L Potassium Level 4.2 3.5-5.1 mmol/L Chloride Level 106 98-107 mmol/L Carbon Dioxide Level 24 20-31 mmol/L Anion Gap 9 5-15 Blood Urea Nitrogen 26 H 9-23 mg/dL Creatinine 1.00 0.550-1.02 mg/dL Glomerular Filtration Rate Calc 60 >90 mL/min BUN/Creatinine Ratio 26.0 H 10.0-20.0 Serum Glucose 139 H 74-106 mg/dL Calcium Level 9.7 8.7-10.4 mg/dL Total Bilirubin 0.5 0.2-1.0 mg/dL Aspartate Amino Transferase (AST) 13 13-40 U/L Alanine Aminotransferase (ALT) 18 7-40 U/L Alkaline Phosphatase 56 46-116 U/L Total Protein 7.2 5.7-8.2 g/dL Albumin 3.9 3.2-4.8 g/dL Urine Color Light-yellow Yellow Urine Clarity Clear Clear Urine pH 5.5 5.0-9.0 Urine Specific [place] 1.025 1.001-1.035 Urine Protein Negative Negative Urine Ketones Negative Negative Urine Blood Negative Negative /uL Urine Nitrite Negative Negative Urine Bilirubin Negative Negative Urine Urobilinogen Normal Negative mg/dL Urine Leukocyte Esterase 1+ Negative /uL Urine RBC <1 0 - 4 /hpf Urine WBC 1 0 - 5 /hpf Urine Squamous Epithelial Cells Few <5 /hpf Urine Bacteria None seen None Seen /hpf Urine Glucose Normal Normal mg/dL Troponin I High Sensitivity 18 </=34 ng/L Test 11/13/24 19:51 Range/Units Hemoglobin A1c 6.1 H <5.7 % A1C B-Type Natriuretic Peptide 73.60 0-100 pg/mL Microbiology Date/Time Source Procedure Growth Status 11/13/24 21:44 Voided Urine Urine Culture - Final Complete Assessment Slurred speech, right-sided weakness, right-sided tongue weakness, rule out acute stroke Shallower left nasolabial folder, need to rule consult her previous pictures or family member Plan/Recommendation Monitoring Supportive treatment Telemetry UDS Lipitor profile Echocardiogram Carotid Doppler Aspirin 81 mg daily Lipitor 10 mg daily More recommendation per clinical course Progress: Poor This medical document was created using an electronic medical record system with [employer] dictation system. Although this document has been carefully reviewed, there may still be some phonetic and typographical errors. These areas are purely typographical due to imperfections of the software programs, and do not reflect any compromise in the patient's medical care. Plan discussed with: Patient, Other MARIAH TERRAZAS MD Nov 16, 2024 21:02
[2024-11-16] MEDS ORDERED: LORazepam 2MG/ML-1ML VIAL IV PRN (21:45)
--- NOTE | 2024-11-16 23:13 | DVH ---
Carotid Duplex Date: 11/16/2024 09:58 PM Clinical History: CVA Comparison: None Technique: Duplex Doppler evaluation of the extracranial carotid and vertebral arteries including color Doppler and spectral/pulsed waveform analysis was performed. Findings: RIGHT SIDE: The peak systolic velocities are 108.7 cm/s in the distal CCA and 147.1 cm/s in the proximal ICA.The ICA/CCA ratio is less than 2. The external carotid artery is patent with peak systolic velocity of 62.4 cm/s proximally. There is appropriate antegrade flow in the right vertebral artery, 79.4 LEFT SIDE: The peak systolic velocities are 3.6 cm/s in the distal CCA and 91.5 cm/s in the proximal ICA.. The ICA/CCA ratio is less than 1. The external carotid artery is patent with peak systolic velocity of 63.8 cm/s proximally. There is appropriate antegrade flow in the left vertebral artery, 62.2 IMPRESSION: 1. No hemodynamically significant stenosis noted in the right carotid system. 2. No hemodynamically significant stenosis noted in the left carotid system. 3. Reference: Radiology 2003; 229:340-346
[2024-11-16 23:17] LABS: Triglycerides 103 mg/dL (< 150)
[2024-11-16 23:19] LABS: HDL Cholesterol 53 mg/dL (40-59)
[2024-11-16 23:20] LABS: Cholesterol 249 mg/dL (< 200); LDL Cholesterol 179 mg/dL (< 100)
[2024-11-17] VITALS (11 sets, daily range): BP systolic 99–153; BP diastolic 51–67; PULSE 68–111; RESP 16–19; TEMP 98.1–101.8; O2SAT 95–98
--- NOTE | 2024-11-17 10:19 | DVHPN2 ---
Progress Note - Dictate Date Seen: Nov 17, 2024 Medical Necessity Reason Pt with a Central, PICC or Fol: No Subjective Ms. Nolan is a 74 years old right-handed female with a history of diabetes, the patient was came to the [facility] on 11/13/2024 with a chief company of right-sided weakness I have seen and examined the patient, I have discussed with her nurse, she was alert and oriented, she reports not feeling good, she spiked temperature, 101.2 degree, otherwise no new complaints Urinalysis, 11/13/2024: Unremarkable WBC/HB/PLT/MCV, 11/15/2024: 9 0.1/1/248/70 CMP, 11/15/2024: Unremarkable HGB A1c, 11/13/2024: 6.1 TG/HDL/LDL/HDL, 11/16/2024: 103/249/179/53 Echocardiogram, 11/15/2024: lvef 55-60% by visual estimate normal rv function mild biatrial enlargement no severe valve abnormalities noted Carotid Doppler, 11/16/2024: 1. No hemodynamically significant stenosis noted in the right carotid system. 2. No hemodynamically significant stenosis noted in the left carotid system. CT head, neck, 11/13/2024: Widely patent arteries in the head and neck without large vessel occlusion, significant stenosis, aneurysm, dissection, or AVM vital signs Vital Sign Date Time Temp Pulse Resp B/P (MAP) Pulse Ox O2 Delivery O2 Flow Rate FiO2 11/17/24 10:08 101.2 11/17/24 05:00 68 18 109/63 (78) 95 11/16/24 20:00 Room Air* 0 21 Total Intake and Output 11/16/24 11/16/24 11/17/24 15:00 23:00 07:00 Intake Total 440 ml 600 ml Output Total 500 ml Balance 440 ml 100 ml medications Current Medications Medications Dose Ordered Sig/Vida Route Start Time Stop Time Status Last Admin Dose Admin Hydralazine HCl 10 mg Q6HP PRN IV 11/14/24 00:15 11/14/24 03:04 10 MG Ceftriaxone Sodium 50 ml @ 100 mls/hr DAILY@2100 IV 11/14/24 21:00 11/16/24 21:00 100 MLS/HR Losartan Potassium 25 mg DAILY PO 11/14/24 10:00 11/16/24 09:35 25 MG Atorvastatin Calcium 10 mg HS PO 11/14/24 22:00 11/16/24 20:59 10 MG Sodium Chloride 10 ml Q8HR IV 11/14/24 06:00 11/17/24 06:14 10 ML Acetaminophen/ Hydrocodone Bitart 1 tab Q4HP PRN PO 11/14/24 00:15 Ondansetron HCl 4 mg Q4HP PRN IV 11/14/24 00:15 Docusate Sodium 100 mg BIDPRN PRN PO 11/14/24 00:15 Acetaminophen 650 mg Q6HP PRN PO 11/14/24 00:15 11/17/24 10:08 650 MG Aspirin 81 mg DAILY PO 11/14/24 10:00 11/17/24 10:08 81 MG Diagnostic Test (Pha) 1 strip ACHS 11/14/24 07:00 11/17/24 06:14 1 STRIP Insulin Human Regular ACHS SC 11/14/24 07:00 11/17/24 06:16 2 UNITS Dextrose 50 ml UD PRN IV 11/14/24 01:00 Nitroglycerin 0.4 mg Q5MINP PRN SL 11/14/24 01:00 Morphine Sulfate 2 mg Q30M PRN IV 11/14/24 01:00 Amlodipine Besylate 5 mg DAILY PO 11/14/24 10:00 11/16/24 09:35 5 MG objective General: the patient is well developed and nourished. No acute distress. MENTAL STATUS: Subjective SPEECH, LANGUAGE, HIGHER CORTICAL FUNCTION: no aphasia or dysathria. CRANIAL NERVES: Pupils are equal, round and reactive. EOMs full and conjugate, Facial sensation intact in all three divisions bilaterally. Mandibular strength intact. The left nasal labial fold looks shallower, tongue slight deviated to the right side. No fasciculations or atrophy. SENSATION: Sensation to touch and pinprick is normal. MOTOR: Normal tone in the upper and lower extremity. Normal muscle bulk. No fasciculations. No abnormal movements or posturing. Muscle strength of the major groups in the upper extremities is 5/5. Muscle strength of the major groups in the lower extremities is 5/5. REFLEXES: Deep tendon reflexes normal and symmetrical. No pathological reflexes. CEREBELLAR/COORDINATION: Finger to nose is normal bilaterally. GAIT/STATION: deferred laboratory and microbiology Laboratory Tests 11/15/24 06:51 Test 11/15/24 06:51 Range/Units Serum Glucose 139 H 74-106 mg/dL Problem List Slurred speech, right-sided weakness, right-sided tongue weakness, rule out acute stroke Shallower left nasolabial folder, need to rule consult her previous pictures or family member Fever/sepsis Microcytic anemia Assessment/Plan Monitoring Supportive treatment Telemetry Occult stool blood Iron panel UDS Echocardiogram Carotid Doppler Aspirin 81 mg daily Lipitor 10 mg daily This medical document was created using an electronic medical record system with [employer] dictation system. Although this document has been carefully reviewed, there may still be some phonetic and typographical errors. These areas are purely typographical due to imperfections of the software programs, and do not reflect any compromise in the patient's medical care. Prognosis poor Plan discussed with: Patient, Other Total Time (mins): 40 MARIAH TERRAZAS MD Nov 17, 2024 10:19
[2024-11-17] MEDS: LORazepam 2MG/ML-1ML VIAL IV PRN (10:55)
[2024-11-17] MEDS ORDERED: SODIUM CHLORIDE 0.9% 1,000 ML IV SCH (11:30)
--- NOTE | 2024-11-17 12:13 | DVH ---
MRI BRAIN WITHOUT CONTRAST CLINICAL HISTORY: CVA TECHNIQUE: Multiplanar, multisequence MR images of the brain without intravenous contrast. Comparison: CTA head 11/13/2024 FINDINGS: The MR images are degraded by motion artifact, particularly of the axial FLAIR images. There is no re stricted diffusion. There is no evidence of hemorrhage, mass, mass effect or midline shift. There is no hydrocephalus or extra-axial fluid collection. The visualized intracranial vasculature demonstrat es appropriate flow-voids. The sagittal midline structures appear unremarkable. The craniocervical ju nction is within normal limits. The calvarium demonstrates normal marrow signal. The right maxillary sinus is hypoplastic. The visualized paranasal sinuses and mastoid air cells are clear. IMPRESSION: 1. There is no acute intracranial process. HS:Y
[2024-11-17 12:17] LABS: Basophils # (auto) 0.1 10 ^3/uL (0-0.2); Basophils % (auto) 0.6 % (0.0-2.0); Eosinophils # (auto) 0 10 ^3/uL (0-0.8); Lymphocytes # (auto) 1.6 10 ^3/uL (0.4-5.4)
[2024-11-17 12:19] LABS: Hemoglobin 11.5 g/dL (12.2-16.2); Lymphocytes % (auto) 13.1 % (10.0-50.0); Mean Corpuscular Hemoglobin 22.2 pg (28.0-32.0); Mean Corpuscular Hgb Conc. 31.9 g/dL (32.0-36.0); Mean Corpuscular Volume 69.6 fL (80.0-100.0); Monocytes # (auto) 0.9 10 ^3/uL (0-1.3); Monocytes % (auto) 7.3 % (0.0-12.0); Neutrophils # (auto) 9.7 10 ^3/uL (1.6-8.6); Nucleated Red Blood Cells % 0.1 %; Platelet Count (auto) 237 10^3/uL (140-450); Red Blood Cells 5.17 10^6/uL (4.0-5.20); Red Cell Distribution Width 16.7 % (11.8-14.3); White Blood Cell 12.3 10^3/uL (4.4-10.8)
[2024-11-17 12:39] LABS: Alanine Aminotransferase 15 U/L (7-40); Albumin 4.1 g/dL (3.2-4.8); Alkaline Phosphatase 55 U/L (46-116); Anion Gap 7 (5-15); Aspartate Aminotransferase 14 U/L (13-40); BUN/Creatinine Ratio 21.4 (10.0-20.0); Bilirubin, Total 0.5 mg/dL (0.2-1.0); Blood Urea Nitrogen 24 mg/dL (9-23); Calcium 9.3 mg/dL (8.7-10.4); Carbon Dioxide 23 mmol/L (20-31); Chloride 105 mmol/L (98-107); Glucose 160 mg/dL (74-106); Potassium 3.9 mmol/L (3.5-5.1); Sodium 135 mmol/L (136-145); Total Protein 7.4 g/dL (5.7-8.2)
[2024-11-17 12:40] LABS: % Iron Saturation 9.2 % (15-50)
--- NOTE | 2024-11-17 13:42 | ECG ---
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
[2024-11-17] MEDS: SODIUM CHLORIDE 0.9% 1,000 ML IV SCH (14:24)
--- NOTE | 2024-11-17 20:32 | DVHPN2 ---
Reviewed: Care Plan, H&P, Labs, Medications, Previous Orders Changes from previous H/P or p: No Changes General: Per HPI Eyes: No Pain, No Vision change, No Conjunctivae inflammation, No Eyelid inflammation, No Other, No Redness ENT: No Ear pain, No Ear discharge, No Nose pain, No Nose discharge, No Nose congestion, No Mouth pain, No Mouth swelling, No Throat pain, No Throat swelling, No Other Cardiovascular: No Chest Pain, No Palpitations, No Orthopnea, No Paroxysmal Noc. Dyspnea, No Edema, No Lt Headedness, No Other Respiratory: No Cough, No Dry, No Shortness of breath, No SOB with excertion, No Wheezing, No Hemoptysis, No Pleuritic Pain, No Sputum, No Other Gastrointestinal: No Nausea, No Vomiting, No Abdominal Pain, No Diarrhea, No Constipation, No Melena, No Hematochezia, No Other Genitourinary: No Dysuria, No Frequency, No Incontinence, No Hematuria, No Retention, No Other Musculoskeletal: No other, No neck pain, No shoulder pain, No arm pain, No back pain, No hand pain, No leg pain, No foot pain Skin: No Rash, No Lesions, No Jaundice, No Bruising, No Other Objective Vitals Vital Signs Date Time Temp Pulse Resp B/P (MAP) Pulse Ox O2 Delivery O2 Flow Rate FiO2 11/17/24 17:47 99.5 11/17/24 17:00 110 16 127/65 (85) 96 11/17/24 08:00 Room Air* 0 21 Intake/Output Intake and Output 11/17/24 07:00 Intake Total 1040 ml Output Total 500 ml Balance 540 ml Intake Oral 990 ml IV Total 50 ml Output Urine Total 500 ml # Voids 5 # Bowel Movements 1 Medications Current Medications Medications Dose Ordered Sig/Vida Route Start Time Stop Time Status Last Admin Dose Admin Hydralazine HCl 10 mg Q6HP PRN IV 11/14/24 00:15 11/14/24 03:04 10 MG Ceftriaxone Sodium 50 ml @ 100 mls/hr DAILY@2100 IV 11/14/24 21:00 11/16/24 21:00 100 MLS/HR Losartan Potassium 25 mg DAILY PO 11/14/24 10:00 11/16/24 09:35 25 MG Atorvastatin Calcium 10 mg HS PO 11/14/24 22:00 11/16/24 20:59 10 MG Sodium Chloride 10 ml Q8HR IV 11/14/24 06:00 11/17/24 14:25 10 ML Acetaminophen/ Hydrocodone Bitart 1 tab Q4HP PRN PO 11/14/24 00:15 Ondansetron HCl 4 mg Q4HP PRN IV 11/14/24 00:15 Docusate Sodium 100 mg BIDPRN PRN PO 11/14/24 00:15 Acetaminophen 650 mg Q6HP PRN PO 11/14/24 00:15 11/17/24 16:37 650 MG Aspirin 81 mg DAILY PO 11/14/24 10:00 11/17/24 10:08 81 MG Diagnostic Test (Pha) 1 strip ACHS 11/14/24 07:00 11/17/24 17:07 1 STRIP Insulin Human Regular ACHS SC 11/14/24 07:00 11/17/24 06:16 2 UNITS Dextrose 50 ml UD PRN IV 11/14/24 01:00 Nitroglycerin 0.4 mg Q5MINP PRN SL 11/14/24 01:00 Morphine Sulfate 2 mg Q30M PRN IV 11/14/24 01:00 Amlodipine Besylate 5 mg DAILY PO 11/14/24 10:00 11/16/24 09:35 5 MG Lorazepam 1 mg ONCE PRN IV 11/17/24 10:30 11/17/24 10:55 1 MG Sodium Chloride 1,000 ml @ 100 mls/hr Q10H IV 11/17/24 12:30 11/17/24 14:24 100 MLS/HR Laboratory Results Laboratory Tests 11/17/24 12:00 Chemistry Test 11/17/24 12:00 Albumin 4.1 g/dL (3.2-4.8) Calcium Level 9.3 mg/dL (8.7-10.4) Total Protein 7.4 g/dL (5.7-8.2) Lipid panel Test 11/16/24 22:48 Cholesterol Level 249 mg/dL (< 200) H HDL Cholesterol 53 mg/dL (40-59) Triglycerides Level 103 mg/dL (< 150) LFT Test 11/17/24 12:00 Alanine Aminotransferase (ALT) 15 U/L (7-40) Alkaline Phosphatase 55 U/L (46-116) Aspartate Amino Transferase (AST) 14 U/L (13-40) Total Bilirubin 0.5 mg/dL (0.2-1.0) Urinalysis Test 11/13/24 21:44 Urine Color Light-yellow (Yellow) Urine Clarity Clear (Clear) Urine pH 5.5 (5.0-9.0) Urine Specific [place] 1.025 (1.001-1.035) Urine Protein Negative (Negative) Urine Ketones Negative (Negative) Urine Blood Negative /uL (Negative) Urine Nitrite Negative (Negative) Urine Bilirubin Negative (Negative) Urine Urobilinogen Normal mg/dL (Negative) Urine Leukocyte Esterase 1+ /uL (Negative) Urine RBC <1 /hpf (0 - 4) Urine WBC 1 /hpf (0 - 5) Urine Squamous Epithelial Cells Few /hpf (<5) Urine Bacteria None seen /hpf (None Seen) Urine Glucose Normal mg/dL (Normal) Microbiology Microbiology Date/Time Source Procedure Growth Status 11/13/24 21:44 Voided Urine Urine Culture - Final Complete Assessment/Plan Assessment/Plan Patient is a 74-year-old female with past medical history of hypertension, hyperlipidemia, and diabetes mellitus who presented to [facility] ED with complaint of right-sided weakness and left-sided facial droop. Patient reports she developed sudden onset of right-sided weakness, numbness of upper and lower extremities, dizziness slurred speech, unsteady gait that prompted this visit. Patient was seen and evaluated in the ED, laboratory data shows WBC 7.6, platelets 244, sodium 141, potassium 3.5, BUN 27, creatinine 1.13, GFR 52, glucose 194, troponin 18, BNP 73.60 blood pressure 192/90 trending down to 172/68, heart rate 74, temperature 97.7 F, O2 saturation 99% room air. Head CT revealing widely patent arteries in the head and neck without large vessel occlusion, significant stenosis, aneurysm, dissection, or AVM. Please see medication orders section in the computer. On my assessment, patient denied chest pain, no headache, no dizziness, no diaphoresis, no shortness of breath, no nausea, no vomiting, no fever, no chills. Patient was admitted for further evaluation medical management. TIA (transient ischemic attack) Right sided weakness Slurred speech Urinary tract infection Hypertensive urgency 11/15/2024: awaiting evaluation by neurology. pending MRI 11/16/2024: neurology to complete evaluation. MRI ordered 11/17/2024: MRI to be done by today. pt is altered due to receiving Ativan Plan discussed with: Patient My Orders Orders - BETH RENEE DO Procedure Category Date Status Time Urine Bacterial CLEMENCIA 11/17/24 In Process Culture 16:42 Sodium Chloride 0.9% PHA 11/17/24 In Process 12:30 Date of Service: Nov 17, 2024 Billing Provider: BETH RENEE DO Common Visit Codes: [id number] INP/OBS CARE(HIGH) BETH RENEE DO Nov 17, 2024 20:32
[2024-11-18] VITALS (8 sets, daily range): BP systolic 100–137; BP diastolic 48–65; PULSE 78–97; RESP 16–19; TEMP 97.8–98.8; O2SAT 94–99
--- NOTE | 2024-11-18 10:55 | DVHPN2 ---
Progress Note - Dictate Date Seen: Nov 18, 2024 Medical Necessity Reason Pt with a Central, PICC or Fol: No Subjective Ms. Nolan is a 74 years old right-handed female with a history of diabetes, the patient was came to the [facility] on 11/13/2024 with a chief company of right-sided weakness I have seen and examined the patient, I have discussed with her nurse, she was alert and fully oriented, she reports feeling better today. She was again confirmed the history I obtained in the initial consultation On physical examination, no change in the shallow right nasolabial motor, the tongue deviated slightly to the right side MRI was unremarkable T-max in the last 24 hour: 101.8 Urinalysis, 11/13/2024: Unremarkable WBC/HB/PLT/MCV, 11/15/2024: 9 0.1/1/248/70 CMP, 11/15/2024: Unremarkable HGB A1c, 11/13/2024: 6.1 TG/HDL/LDL/HDL, 11/16/2024: 103/249/179/53 Echocardiogram, 11/15/2024: lvef 55-60% by visual estimate normal rv function mild biatrial enlargement no severe valve abnormalities noted Carotid Doppler, 11/16/2024: 1. No hemodynamically significant stenosis noted in the right carotid system. 2. No hemodynamically significant stenosis noted in the left carotid system. CT head, neck, 11/13/2024: Widely patent arteries in the head and neck without large vessel occlusion, significant stenosis, aneurysm, dissection, or AVM MRI head, 11/17/2024: There is no acute intracranial process. vital signs Vital Sign Date Time Temp Pulse Resp B/P (MAP) Pulse Ox O2 Delivery O2 Flow Rate FiO2 11/18/24 10:00 115/60 11/18/24 08:42 98.8 91 16 97 98.8 11/17/24 20:00 Room Air* 0 21 Total Intake and Output 11/17/24 11/17/24 11/18/24 15:00 23:00 07:00 Intake Total 550 ml Balance 550 ml medications Current Medications Medications Dose Ordered Sig/Vida Route Start Time Stop Time Status Last Admin Dose Admin Hydralazine HCl 10 mg Q6HP PRN IV 11/14/24 00:15 11/14/24 03:04 10 MG Ceftriaxone Sodium 50 ml @ 100 mls/hr DAILY@2100 IV 11/14/24 21:00 11/17/24 20:42 100 MLS/HR Losartan Potassium 25 mg DAILY PO 11/14/24 10:00 11/16/24 09:35 25 MG Atorvastatin Calcium 10 mg HS PO 11/14/24 22:00 11/17/24 21:26 10 MG Sodium Chloride 10 ml Q8HR IV 11/14/24 06:00 11/18/24 06:26 10 ML Acetaminophen/ Hydrocodone Bitart 1 tab Q4HP PRN PO 11/14/24 00:15 Ondansetron HCl 4 mg Q4HP PRN IV 11/14/24 00:15 Docusate Sodium 100 mg BIDPRN PRN PO 11/14/24 00:15 Acetaminophen 650 mg Q6HP PRN PO 11/14/24 00:15 11/17/24 16:37 650 MG Aspirin 81 mg DAILY PO 11/14/24 10:00 11/18/24 10:00 81 MG Diagnostic Test (Pha) 1 strip ACHS 11/14/24 07:00 11/18/24 06:27 1 STRIP Insulin Human Regular ACHS SC 11/14/24 07:00 11/17/24 06:16 2 UNITS Dextrose 50 ml UD PRN IV 11/14/24 01:00 Nitroglycerin 0.4 mg Q5MINP PRN SL 11/14/24 01:00 Morphine Sulfate 2 mg Q30M PRN IV 11/14/24 01:00 Amlodipine Besylate 5 mg DAILY PO 11/14/24 10:00 11/18/24 10:00 5 MG Lorazepam 1 mg ONCE PRN IV 11/17/24 10:30 11/17/24 10:55 1 MG Sodium Chloride 1,000 ml @ 100 mls/hr Q10H IV 11/17/24 12:30 11/18/24 06:28 100 MLS/HR objective General: the patient is well developed and nourished. No acute distress. MENTAL STATUS: Subjective SPEECH, LANGUAGE, HIGHER CORTICAL FUNCTION: no aphasia or dysathria. CRANIAL NERVES: Pupils are equal, round and reactive. EOMs full and conjugate, Facial sensation intact in all three divisions bilaterally. Mandibular strength intact. The left nasal labial fold looks shallower, tongue slight deviated to the right side. No fasciculations or atrophy. SENSATION: Sensation to touch and pinprick is normal. MOTOR: Normal tone in the upper and lower extremity. Normal muscle bulk. No fasciculations. No abnormal movements or posturing. Muscle strength of the major groups in the upper extremities is 5/5. Muscle strength of the major groups in the lower extremities is 5/5. REFLEXES: Deep tendon reflexes normal and symmetrical. No pathological reflexes. CEREBELLAR/COORDINATION: Finger to nose is normal bilaterally. GAIT/STATION: deferred laboratory and microbiology Laboratory Tests 11/17/24 12:00 Test 11/17/24 12:00 Range/Units Serum Glucose 160 H 74-106 mg/dL Problem List Slurred speech, right-sided weakness, resolved, but right-sided tongue weakness persists ? CVA Other etiology Shallower left nasolabial folder, need to rule consult her previous pictures or family member Fever/sepsis Microcytic anemia Assessment/Plan Monitoring Supportive treatment Telemetry Occult stool blood UDS Carotid Doppler Aspirin 81 mg daily Lipitor 40 mg daily This medical document was created using an electronic medical record system with [employer] dictation system. Although this document has been carefully reviewed, there may still be some phonetic and typographical errors. These areas are purely typographical due to imperfections of the software programs, and do not reflect any compromise in the patient's medical care. Prognosis Poor Plan discussed with: Patient, Other MARIAH TERRAZAS MD Nov 18, 2024 10:55
[2024-11-18] MEDS: ATORVASTATIN 20 MG TAB PO SCH (11:15)
--- NOTE | 2024-11-18 14:31 | ECG ---
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
--- NOTE | 2024-11-18 14:33 | DVHPN2 ---
Reviewed: Care Plan, H&P, Labs, Medications, Previous Orders Changes from previous H/P or p: No Changes General: Per HPI Eyes: No Pain, No Vision change, No Conjunctivae inflammation, No Eyelid inflammation, No Other, No Redness ENT: No Ear pain, No Ear discharge, No Nose pain, No Nose discharge, No Nose congestion, No Mouth pain, No Mouth swelling, No Throat pain, No Throat swelling, No Other Cardiovascular: No Chest Pain, No Palpitations, No Orthopnea, No Paroxysmal Noc. Dyspnea, No Edema, No Lt Headedness, No Other Respiratory: No Cough, No Dry, No Shortness of breath, No SOB with excertion, No Wheezing, No Hemoptysis, No Pleuritic Pain, No Sputum, No Other Gastrointestinal: No Nausea, No Vomiting, No Abdominal Pain, No Diarrhea, No Constipation, No Melena, No Hematochezia, No Other Genitourinary: No Dysuria, No Frequency, No Incontinence, No Hematuria, No Retention, No Other Musculoskeletal: No other, No neck pain, No shoulder pain, No arm pain, No back pain, No hand pain, No leg pain, No foot pain Skin: No Rash, No Lesions, No Jaundice, No Bruising, No Other Objective Vitals Vital Signs Date Time Temp Pulse Resp B/P (MAP) Pulse Ox O2 Delivery O2 Flow Rate FiO2 11/18/24 12:42 97.9 78 16 123/54 (77) 98 97.9 11/18/24 08:00 Room Air* 0 21 Intake/Output Intake and Output 11/18/24 07:00 Intake Total 550 ml Balance 550 ml Intake Oral 100 ml IV Total 450 ml # Voids 1 # Bowel Movements 2 General Appearance: Alert, Oriented X3, Cooperative, No acute distress HEENT: Atraumatic Cardiovascular: Regular rate, Normal S1, Normal S2 Abdomen: Normal bowel sounds, Soft Medications Current Medications Medications Dose Ordered Sig/Vida Route Start Time Stop Time Status Last Admin Dose Admin Hydralazine HCl 10 mg Q6HP PRN IV 11/14/24 00:15 11/14/24 03:04 10 MG Ceftriaxone Sodium 50 ml @ 100 mls/hr DAILY@2100 IV 11/14/24 21:00 11/17/24 20:42 100 MLS/HR Losartan Potassium 25 mg DAILY PO 11/14/24 10:00 11/18/24 10:00 25 MG Sodium Chloride 10 ml Q8HR IV 11/14/24 06:00 11/18/24 06:26 10 ML Acetaminophen/ Hydrocodone Bitart 1 tab Q4HP PRN PO 11/14/24 00:15 Ondansetron HCl 4 mg Q4HP PRN IV 11/14/24 00:15 Docusate Sodium 100 mg BIDPRN PRN PO 11/14/24 00:15 Acetaminophen 650 mg Q6HP PRN PO 11/14/24 00:15 11/17/24 16:37 650 MG Aspirin 81 mg DAILY PO 11/14/24 10:00 11/18/24 10:00 81 MG Diagnostic Test (Pha) 1 strip ACHS 11/14/24 07:00 11/18/24 11:30 1 STRIP Insulin Human Regular ACHS SC 11/14/24 07:00 11/17/24 06:16 2 UNITS Dextrose 50 ml UD PRN IV 11/14/24 01:00 Nitroglycerin 0.4 mg Q5MINP PRN SL 11/14/24 01:00 Morphine Sulfate 2 mg Q30M PRN IV 11/14/24 01:00 Amlodipine Besylate 5 mg DAILY PO 11/14/24 10:00 11/18/24 10:00 5 MG Lorazepam 1 mg ONCE PRN IV 11/17/24 10:30 11/17/24 10:55 1 MG Sodium Chloride 1,000 ml @ 100 mls/hr Q10H IV 11/17/24 12:30 11/18/24 06:28 100 MLS/HR Atorvastatin Calcium 40 mg HS PO 11/18/24 11:15 Laboratory Results Laboratory Tests 11/17/24 12:00 Urinalysis Test 11/13/24 21:44 Urine Color Light-yellow (Yellow) Urine Clarity Clear (Clear) Urine pH 5.5 (5.0-9.0) Urine Specific [place] 1.025 (1.001-1.035) Urine Protein Negative (Negative) Urine Ketones Negative (Negative) Urine Blood Negative /uL (Negative) Urine Nitrite Negative (Negative) Urine Bilirubin Negative (Negative) Urine Urobilinogen Normal mg/dL (Negative) Urine Leukocyte Esterase 1+ /uL (Negative) Urine RBC <1 /hpf (0 - 4) Urine WBC 1 /hpf (0 - 5) Urine Squamous Epithelial Cells Few /hpf (<5) Urine Bacteria None seen /hpf (None Seen) Urine Glucose Normal mg/dL (Normal) Microbiology Microbiology Date/Time Source Procedure Growth Status 11/17/24 16:39 Urine - Midstream Clean Catch Urine Culture - Preliminary Resulted 11/17/24 12:01 Blood Blood Culture - Preliminary NO GROWTH AFTER 24 HOURS OF INCUBATION. Resulted Assessment/Plan Assessment/Plan Patient is a 74-year-old female with past medical history of hypertension, hyperlipidemia, and diabetes mellitus who presented to [facility] ED with complaint of right-sided weakness and left-sided facial droop. Patient reports she developed sudden onset of right-sided weakness, numbness of upper and lower extremities, dizziness slurred speech, unsteady gait that prompted this visit. Patient was seen and evaluated in the ED, laboratory data shows WBC 7.6, platelets 244, sodium 141, potassium 3.5, BUN 27, creatinine 1.13, GFR 52, glucose 194, troponin 18, BNP 73.60 blood pressure 192/90 trending down to 172/68, heart rate 74, temperature 97.7 F, O2 saturation 99% room air. Head CT revealing widely patent arteries in the head and neck without large vessel occlusion, significant stenosis, aneurysm, dissection, or AVM. Please see medication orders section in the computer. On my assessment, patient denied chest pain, no headache, no dizziness, no diaphoresis, no shortness of breath, no nausea, no vomiting, no fever, no chills. Patient was admitted for further evaluation medical management. TIA (transient ischemic attack) Right sided weakness Slurred speech Urinary tract infection Hypertensive urgency acute metabolic encephalopathy 11/15/2024: awaiting evaluation by neurology. pending MRI 11/16/2024: neurology to complete evaluation. MRI ordered 11/17/2024: MRI to be done by today. pt is altered due to receiving Ativan 11/18/2024: pt still has some altered mental status and unsteady on her feet. also waiting for MRI results and clearance from neurology prior to discharge Plan discussed with: Patient Date of Service: Nov 18, 2024 Billing Provider: BETH RENEE DO Common Visit Codes: [id number] INP/OBS CARE(HIGH) BETH RENEE DO Nov 18, 2024 14:33
[2024-11-18] MEDS: LOPERAMIDE HCL 2 MG CAP/TAB PO ONE (20:57)
[2024-11-19] VITALS (8 sets, daily range): BP systolic 92–122; BP diastolic 42–64; PULSE 57–91; RESP 16–18; TEMP 97.4–99.1; O2SAT 94–100
[2024-11-19] MEDS ORDERED: LOS25T PO (15:10)
[2024-11-19] MEDS ORDERED: ATOR20TA50 PO (15:10)
--- NOTE | 2024-11-19 15:11 | DVHDS2 ---
Discharge Summary Date of Admission Nov 14, 2024 at 00:48 Date of Discharge: Nov 19, 2024 Labs/Diagnostic Data: Laboratory Results Test 11/19/24 11:39 11/18/24 15:10 11/17/24 12:00 11/16/24 22:48 POC Glucose 99 mg/dl (70-106) Stool Occult Blood Positive (Negative) Stool Occult Blood Sample #3 (Negative) White Blood Count 12.3 10^3/uL (4.4-10.8) Red Blood Count 5.17 10^6/uL (4.0-5.20) Hemoglobin 11.5 g/dL (12.2-16.2) Hematocrit 36.0 % (36.0-46.0) Mean Corpuscular Volume 69.6 fL (80.0-100.0) Mean Corpuscular Hemoglobin 22.2 pg (28.0-32.0) Mean Corpuscular Hemoglobin Concent 31.9 g/dL (32.0-36.0) Red Cell Distribution Width 16.7 % (11.8-14.3) Platelet Count 237 10^3/uL (140-450) Mean Platelet Volume 7.5 fL (6.9-10.8) Neutrophils (%) (Auto) 79.0 % (37.0-80.0) Lymphocytes (%) (Auto) 13.1 % (10.0-50.0) Monocytes (%) (Auto) 7.3 % (0.0-12.0) Eosinophils (%) (Auto) 0.0 % (0.0-7.0) Basophils (%) (Auto) 0.6 % (0.0-2.0) Neutrophils # (Auto) 9.7 10 ^3/uL (1.6-8.6) Lymphocytes # (Auto) 1.6 10 ^3/uL (0.4-5.4) Monocytes # (Auto) 0.9 10 ^3/uL (0-1.3) Eosinophils # (Auto) 0 10 ^3/uL (0-0.8) Basophils # (Auto) 0.1 10 ^3/uL (0-0.2) Nucleated Red Blood Cells 0.1 % Sodium Level 135 mmol/L (136-145) Potassium Level 3.9 mmol/L (3.5-5.1) Chloride Level 105 mmol/L (98-107) Carbon Dioxide Level 23 mmol/L (20-31) Anion Gap 7 (5-15) Blood Urea Nitrogen 24 mg/dL (9-23) Creatinine 1.12 mg/dL (0.550-1.02) Glomerular Filtration Rate Calc 52 mL/min (>90) BUN/Creatinine Ratio 21.4 (10.0-20.0) Serum Glucose 160 mg/dL (74-106) Calcium Level 9.3 mg/dL (8.7-10.4) Iron Level 23 ug/dL (50-170) Total Iron Binding Capacity 250 ug/dL (250-425) Percent Iron Saturation 9.2 % (15-50) Total Bilirubin 0.5 mg/dL (0.2-1.0) Aspartate Amino Transferase (AST) 14 U/L (13-40) Alanine Aminotransferase (ALT) 15 U/L (7-40) Alkaline Phosphatase 55 U/L (46-116) Total Protein 7.4 g/dL (5.7-8.2) Albumin 4.1 g/dL (3.2-4.8) Triglycerides Level 103 mg/dL (< 150) Cholesterol Level 249 mg/dL (< 200) LDL Cholesterol 179 mg/dL (< 100) HDL Cholesterol 53 mg/dL (40-59) Test 11/13/24 21:44 11/13/24 21:30 11/13/24 19:51 Urine Color Light-yellow (Yellow) Urine Clarity Clear (Clear) Urine pH 5.5 (5.0-9.0) Urine Specific [place] 1.025 (1.001-1.035) Urine Protein Negative (Negative) Urine Ketones Negative (Negative) Urine Blood Negative /uL (Negative) Urine Nitrite Negative (Negative) Urine Bilirubin Negative (Negative) Urine Urobilinogen Normal mg/dL (Negative) Urine Leukocyte Esterase 1+ /uL (Negative) Urine RBC <1 /hpf (0 - 4) Urine WBC 1 /hpf (0 - 5) Urine Squamous Epithelial Cells Few /hpf (<5) Urine Bacteria None seen /hpf (None Seen) Urine Glucose Normal mg/dL (Normal) Troponin I High Sensitivity 18 ng/L (</=34) Hemoglobin A1c 6.1 % A1C (<5.7) B-Type Natriuretic Peptide 73.60 pg/mL (0-100) Other Laboratory Tests 11/17/24 12:00 Brief Hx & Hospital Course: Patient is a 74-year-old female with past medical history of hypertension, hyperlipidemia, and diabetes mellitus who presented to [facility] ED with complaint of right-sided weakness and left-sided facial droop. Patient reports she developed sudden onset of right-sided weakness, numbness of upper and lower extremities, dizziness slurred speech, unsteady gait that prompted this visit. Patient was seen and evaluated in the ED, laboratory data shows WBC 7.6, platelets 244, sodium 141, potassium 3.5, BUN 27, creatinine 1.13, GFR 52, glucose 194, troponin 18, BNP 73.60 blood pressure 192/90 trending down to 172/68, heart rate 74, temperature 97.7 F, O2 saturation 99% room air. Head CT revealing widely patent arteries in the head and neck without large vessel occlusion, significant stenosis, aneurysm, dissection, or AVM. Please see medication orders section in the computer. On my assessment, patient denied chest pain, no headache, no dizziness, no diaphoresis, no shortness of breath, no nausea, no vomiting, no fever, no chills. Patient was admitted for further evaluation medical management. TIA (transient ischemic attack) Right sided weakness Slurred speech Urinary tract infection Hypertensive urgency acute metabolic encephalopathy 11/15/2024: awaiting evaluation by neurology. pending MRI 11/16/2024: neurology to complete evaluation. MRI ordered 11/17/2024: MRI to be done by today. pt is altered due to receiving Ativan 11/18/2024: pt still has some altered mental status and unsteady on her feet. also waiting for MRI results and clearance from neurology prior to discharge 11/19/2024: discharged to home. Pt is now more alert and oriented x 3. steady on her feet. Home with self care Condition at Discharge: Good Final Diagnosis/Problems List see above Discharge Disposition: Home Discharge Instruct/Medications Diet: Cardiac 2g Na,low cholest Activity: No Restrictions, As Tolerated Discharge Statement: "Patient was advised to return to the ER or call 911 if any headaches, dizziness, shortness of breath, chest pain, abdominal pain, bleeding, fevers, or worsening of medical condition. Patient was counseled about treatment plan, medications, possible side effects, patientverbalized understanding. All questions were answered to the best of my ability. This discharge took greater then 30 minutes in planning, reviewing documentation, counseling the patient, and discussing with other team members." ASSESSMENT ASSESSMENT Assessment Date of Service: Nov 19, 2024 Billing Provider: BETH RENEE DO Common Visit Codes: [id number] DISCH DAY >30min BETH RENEE DO Nov 19, 2024 15:11
--- NOTE | 2024-11-20 08:14 | ECG ---
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
--- NOTE | 2024-11-20 08:14 | ECG ---
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
--- NOTE | 2024-11-20 09:26 | DVHPN2 ---
Progress Note - Dictate Date Seen: Nov 19, 2024 Medical Necessity Reason Pt with a Central, PICC or Fol: No Subjective Ms. Nolan is a 74 years old right-handed female with a history of diabetes, the patient was came to the [facility] on 11/13/2024 with a chief company of right-sided weakness I have seen and examined the patient in the morning on 11/19/24, I have discussed with her nurse, she was alert and fully oriented, she reports feeling better today. No diarrhea Again, on physical examination, no change in the shallow right nasolabial motor, the tongue deviated slightly to the right side Urinalysis, 11/13/2024: Unremarkable WBC/HB/PLT/MCV, 11/15/2024: 9 0.1//248/70 CMP, 11/15/2024: Unremarkable HGB A1c, 11/13/2024: 6.1 TG/HDL/LDL/HDL, 11/16/2024: 103/249/179/53 Echocardiogram, 11/15/2024: lvef 55-60% by visual estimate normal rv function mild biatrial enlargement no severe valve abnormalities noted Carotid Doppler, 11/16/2024: 1. No hemodynamically significant stenosis noted in the right carotid system. 2. No hemodynamically significant stenosis noted in the left carotid system. CT head, neck, 11/13/2024: Widely patent arteries in the head and neck without large vessel occlusion, significant stenosis, aneurysm, dissection, or AVM MRI head, 11/17/2024: There is no acute intracranial process. vital signs Vital Sign Date Time Temp Pulse Resp B/P (MAP) Pulse Ox O2 Delivery O2 Flow Rate FiO2 11/19/24 17:00 97.4 91 18 112/54 (73) 100 97.4 11/19/24 08:15 Room Air* 0 21 Total Intake and Output 11/19/24 11/19/24 11/20/24 15:00 23:00 07:00 Intake Total 1750 ml Output Total 2 ml Balance 1748 ml objective General: the patient is well developed and nourished. No acute distress. MENTAL STATUS: Subjective SPEECH, LANGUAGE, HIGHER CORTICAL FUNCTION: no aphasia or dysathria. CRANIAL NERVES: Pupils are equal, round and reactive. EOMs full and conjugate, Facial sensation intact in all three divisions bilaterally. Mandibular strength intact. The left nasal labial fold looks shallower, tongue slight deviated to the right side. No fasciculations or atrophy. SENSATION: Sensation to touch and pinprick is normal. MOTOR: Normal tone in the upper and lower extremity. Normal muscle bulk. No fasciculations. No abnormal movements or posturing. Muscle strength of the major groups in the upper extremities is 5/5. Muscle strength of the major groups in the lower extremities is 5/5. REFLEXES: Deep tendon reflexes normal and symmetrical. No pathological reflexes. CEREBELLAR/COORDINATION: Finger to nose is normal bilaterally. GAIT/STATION: deferred laboratory and microbiology Laboratory Tests 11/17/24 12:00 Test 11/17/24 12:00 Range/Units Serum Glucose 160 H 74-106 mg/dL Problem List Slurred speech, right-sided weakness, resolved, but right-sided tongue weakness persists ? CVA Other etiology Shallower left nasolabial folder, need to rule consult her previous pictures or family member Fever/sepsis Microcytic anemia Assessment/Plan Monitoring Supportive treatment Telemetry Occult stool blood UDS Carotid Doppler Aspirin 81 mg daily Lipitor 40 mg daily This medical document was created using an electronic medical record system with [employer] dictation system. Although this document has been carefully reviewed, there may still be some phonetic and typographical errors. These areas are purely typographical due to imperfections of the software programs, and do not reflect any compromise in the patient's medical care. Prognosis poor Plan discussed with: Patient, Other MARIAH TERRAZAS MD Nov 20, 2024 09:26
== END 2024-11-19 16:32 | disposition home or self-care (01) | DRG 69 ==
LOC: ER 19:31 → TELE 11-14 00:48 → TELE-EAST 11-14 22:33
PROVIDERS: ADMIT Internal Medicine; ATTEND Internal Medicine
DX: G45.9 Transient cerebral ischemic attack, unspecified (principal); N39.0 Urinary tract infection, site not specified; I16.0 Hypertensive urgency; R47.81 Slurred speech; E11.9 Type 2 diabetes mellitus without complications; E78.5 Hyperlipidemia, unspecified; F17.200 Nicotine dependence, unspecified, uncomplicated; R26.81 Unsteadiness on feet; Z82.0 Family history of epilepsy and other diseases of the nervous system; Z82.49 Family history of ischemic heart disease and other diseases of the circulatory system; Z83.3 Family history of diabetes mellitus; Z79.82 Long term (current) use of aspirin; Z79.899 Other long term (current) drug therapy
CPT/HCPCS: 36415; 70496; 70498; 70551; 71046; 80053; 80061; 81001; 82270; 82962; 83036; 83540; 83550; 83880; 84484; 85025; 87040; 87086; 93005; 93306; 93886; 99291; G0378; J1815

== ENCOUNTER 2025-09-01 08:27 | Outpatient (CLI) | payer BC ==
[~2025-09-01 08:27] MED LIST changes: +AMLO1TAB22 PO; +ATOR20TA50 PO; +LOS25T PO
[2025-09-01 09:06] LABS: Mean Corpuscular Hemoglobin 22.6 pg (28.0-32.0)
[2025-09-01 09:07] LABS: Hematocrit 32.7 % (36.0-46.0); Hemoglobin 10.6 g/dL (12.2-16.2); Mean Corpuscular Volume 69.6 fL (80.0-100.0); Nucleated Red Blood Cells % 0.1 %; Urine Protein, UAD Negative (Negative)
[2025-09-01 09:28] LABS: Alanine Aminotransferase 15 U/L (7-40); Albumin 4.3 g/dL (3.2-4.8); Alkaline Phosphatase 63 U/L (46-116); Anion Gap 10 (5-15); BUN/Creatinine Ratio 17.4 (10.0-20.0); Bilirubin, Total 0.6 mg/dL (0.2-1.0); Blood Urea Nitrogen 20 mg/dL (9-23); Calcium 9.2 mg/dL (8.7-10.4); Carbon Dioxide 27 mmol/L (20-31); Chloride 105 mmol/L (98-107); Glucose 78 mg/dL (74-106); Potassium 4.4 mmol/L (3.5-5.1); Sodium 142 mmol/L (136-145); Total Protein 7.8 g/dL (5.7-8.2)
== END 2025-09-01 17:00 | disposition home or self-care (01) ==
LOC: LAB 08:27
PROVIDERS: ATTEND Nurse Practitioner
DX: Z01.812 Encounter for preprocedural laboratory examination (principal); E78.5 Hyperlipidemia, unspecified
CPT/HCPCS: 36415; 80053; 81001; 85025